=== PATIENT | male | born 1965 | race Caucasian/White ===

== ENCOUNTER 2021-08-28 07:05 | Inpatient (IN) | payer MEDICARE, OTHER ==
[~2021-08-28] VITALS: Ht 175.3 cm; Wt 69.8 kg
[2021-08-28 07:58] LABS: Source, Urine Voided
[2021-08-28 08:00] LABS: Appearance, Urine Clear (Clear); Bilirubin, Urine Neg (Neg); Blood, Urine 4+ (Neg); Color, Urine Yellow (P-Yellow); Glucose Qualitative, Urine 4+ (Neg); Ketones, Urine 1+ (Neg); Leukocyte Esterase, Urine Neg (Neg); Nitrite, Urine Neg (Neg); Protein, Urine Neg (Neg); Specific Gravity, Urine 1.005 (1.003-1.022); Urobilinogen, Urine NORM (Normal)
[2021-08-28 08:08] LABS: Bacteria Not Seen /hpf; Squamous Epithelial Cells Not Seen /hpf (Few); White Blood Cells, Urine 0-2 /hpf (0-5)
[2021-08-28 08:14] LABS: Base Excess Venous 3.4 mmol/L; PCO2 Venous 43.1 mmHg (38-42); pH Blood Venous 7.42 (7.34-7.37)
[2021-08-28 08:16] LABS: U Amphetamine Screen Not Detected; U Barbituate Screen Not Detected; U Benzodiazapine Screen Not Detected; U Buprenorphine Screen Not Detected; U Cannabinoids Screen Not Detected; U Cocaine Screen Not Detected; U Methadone Screen Not Detected; U Methamphetamine Screen Not Detected; U Opiates Screen Not Detected; U Oxycodone Screen DETECTED; U Phencyclidine Screen Not Detected; U Propoxyphene Screen Not Detected
[2021-08-28 08:26] LABS: Beta-hydroxybutyrate 9.1 mg/dL (0.2-2.8); Ethanol (Alcohol), Blood, Med <3 mg/dL; Magnesium, Blood 1.8 mg/dL (1.6-2.4)
[2021-08-28 08:27] LABS: Alanine Aminotransfer (ALT/SGP 27 U/L (12-78); Albumin, Blood 1.5 g/dL (3.4-5.0); Albumin/Globulin Ratio 0.3 (0.8-1.8); Alk Phos 101 U/L (50-136); Anion Gap 7 mmol/L (6-16); Aspartate Aminotrans (AST/SGOT 22 U/L (12-37); Bilirubin, Total 1.5 mg/dL (0.1-1.0); Blood Urea Nitrogen 13 mg/dL (8-24); Bun/Creatinine Ratio 23.5 (12.0-20.0); CO2, Blood 26 mmol/L (21-32); Calcium, Blood 8.5 mg/dL (8.5-10.1); Chloride, Blood 101 mmol/L (98-108); Creatinine, Blood 0.55 mg/dL (0.60-1.20); Glomerular Filtration Rate >60 (60-); Glucose, Blood 525 mg/dL (70-99); Potassium, Blood 4.1 mmol/L (3.5-5.5); Sodium, Blood 134 mmol/L (136-145); Total Protein, Blood 6.5 g/dL (6.4-8.2)
[2021-08-28 08:32] LABS: BASOPHILS ABSOLUTE AUTO 0.02 K/mm3 (0.00-0.23); BASOPHILS PERCENT AUTO 1 % (0-2); EOSINOPHILS ABSOLUTE AUTO 0.08 K/mm3 (0.00-0.68); EOSINOPHILS PERCENT AUTO 3 % (0-6); Hematocrit 26.9 % (37.0-53.0); Hemoglobin 8.3 g/dL (13.5-17.5); IMMATURE GRAN ABSOLUTE AUTO 0.01 K/mm3 (0.00-0.10); IMMATURE GRAN PERCENT AUTO 0 % (0-1); LYMPHOCYTES ABSOLUTE AUTO 0.36 K/mm3 (0.84-5.20); LYMPHOCYTES PERCENT AUTO 15 % (21-46); MONOCYTES ABSOLUTE AUTO 0.32 K/mm3 (0.16-1.47); MONOCYTES PERCENT AUTO 13 % (4-13); Mean Corpuscular HGB Conc 30.9 g/dL (31.5-36.5); Mean Corpuscular Volume 84 fL (80-100); NEUTROPHILS ABSOLUTE AUTO 1.65 K/mm3 (1.96-9.15); NEUTROPHILS PERCENT AUTO 68 % (41-73); RDW Coefficient Variation 16.3 % (11.7-14.2); RDW Standard Deviation 50.7 fL (35.1-46.3); Red Blood Cell Count 3.19 M/mm3 (4.30-5.90); White Blood Cell Count 2.44 K/mm3 (4.00-11.30)
[2021-08-28 08:45] LABS: Platelet Count 23 K/mm3 (150-400)
[2021-08-28 08:47] LABS: International Normalized Ratio 1.32; Prothrombin Time Results 13.6 Sec (9.7-11.5)
[2021-08-28 17:01] LABS: Influenza A, PCR NEGATIVE (NEGATIVE); Influenza B, PCR NEGATIVE (NEGATIVE); Resp Syncytial Virus, PCR NEGATIVE (NEGATIVE); SARS-Cov-2 (COVID-19) PCR, MMC NEGATIVE (NEGATIVE)
[2021-08-28 19:06] LABS: Hematocrit 28.1 % (37.0-53.0); Hemoglobin 8.6 g/dL (13.5-17.5)
--- NOTE | 2021-08-28 19:32 | NUR ---
RECEIVED REPORT FROM SHERYL DEL CID IN ED. PT TO ROOM AT 1845 VIA [facility], 1 PERSON ASSIST TRANSFER TO BED. VSS. REPORT GIVEN TO ONCOMING RN.
[2021-08-28] MEDS ORDERED: FURO40 PO (20:06)
[2021-08-28] MEDS ORDERED: METF500C PO (20:07)
[2021-08-28] MEDS ORDERED: LANTUS SOL100 UNIT/1 SC (20:09)
[2021-08-28] MEDS ORDERED: ADMELOG SO100 UNIT/2 SC (20:12)
[2021-08-28] MEDS ORDERED: OMEP20ER PO (20:13)
[2021-08-28] MEDS ORDERED: SPIR25 PO (20:14)
[2021-08-28] MEDS ORDERED: ROXICODONE5 MG PO (20:16)
[2021-08-29 01:47] LABS: Hematocrit 28.3 % (37.0-53.0); Hemoglobin 8.7 g/dL (13.5-17.5)
[2021-08-29 02:14] LABS: Alanine Aminotransfer (ALT/SGP 24 U/L (12-78); Albumin, Blood 1.7 g/dL (3.4-5.0); Albumin/Globulin Ratio 0.4 (0.8-1.8); Alk Phos 86 U/L (50-136); Anion Gap 6 mmol/L (6-16); Aspartate Aminotrans (AST/SGOT 33 U/L (12-37); Bilirubin, Total 1.4 mg/dL (0.1-1.0); Blood Urea Nitrogen 15 mg/dL (8-24); Bun/Creatinine Ratio 23.4 (12.0-20.0); CO2, Blood 26 mmol/L (21-32); Calcium, Blood 7.9 mg/dL (8.5-10.1); Chloride, Blood 108 mmol/L (98-108); Creatinine, Blood 0.64 mg/dL (0.60-1.20); Globulin, Blood 4.4 g/dL (2.2-4.0); Glomerular Filtration Rate >60 (60-); Glucose, Blood 306 mg/dL (70-99); Potassium, Blood 4.5 mmol/L (3.5-5.5); Sodium, Blood 140 mmol/L (136-145); Total Protein, Blood 6.1 g/dL (6.4-8.2)
--- NOTE | 2021-08-29 06:11 | NUR ---
SHIFT SUMMARY PATIENT FOUND TO BE ALERT AND ORIENTEDX1-2, WITH SEVERELY SLURRED/INCOMPREHENSIBLE SPEECH, GEN WEAKNESS, AND IN ACTIVE ALCOHOL WITHDRAW. CIWA Q4H WITH SCORES FROM 7-12. ATIVAN X1 GIVEN WHICH MADE PATIENT LETHARGIC FOR ABIT. VERY DROWSY AND FREQUENTLY DRIFTS OFF TO SLEEP MID CONVERSATION. NOT COMPLIANT WITH CARE AND RIPPING OUT IVS AND TELE EVERY CHANCE HE GETS. IS RESTLESS IN BETWEEN BOUTS OF LETHARGY. RESTRAINTS APPLIED AT END OF SHIFT PATIENT WAS TAKING AWAY FROM OTHER IMPORTANT PATIENT CARE. VSS. ON 2L NC SATING MID 90'S. PRODUCTIVE COUGH WITH SOME BLOODY SPUTUM NOTED. NSR ON THE MONITOR. BEDREST AND PATIENT IS UNSTEADY AND DOES NOT KNOW LIMITS. NOT FOLLOWING COMMANDS. NPO UNTIL SCOPE OR TRANSFER LATER TODAY. INCONTINENT OF URINE. NO BM THIS SHIFT. IV FLUIDS, PROTONIX, AND SANDOSTATIN RUNNING PER ORDER. FALL PRECAUTIONS IN PLACE. NO ACUTE CONCERNS AT THIS TIME. WILL CONTINUE PLAN OF CARE UNTIL REPORT GIVEN TO JORGE SAUCEDO.
[2021-08-29 09:15] LABS: Hematocrit 28.1 % (37.0-53.0); Hemoglobin 8.4 g/dL (13.5-17.5)
--- NOTE | 2021-08-29 10:49 | NUR ---
CONDOM CATH PLACED
[2021-08-29 13:51] LABS: BASOPHILS ABSOLUTE AUTO 0.01 K/mm3 (0.00-0.23); BASOPHILS PERCENT AUTO 1 % (0-2); EOSINOPHILS ABSOLUTE AUTO 0.09 K/mm3 (0.00-0.68); EOSINOPHILS PERCENT AUTO 4 % (0-6); Hematocrit 27.9 % (37.0-53.0); Hemoglobin 8.5 g/dL (13.5-17.5); IMMATURE GRAN ABSOLUTE AUTO 0.01 K/mm3 (0.00-0.10); IMMATURE GRAN PERCENT AUTO 1 % (0-1); LYMPHOCYTES ABSOLUTE AUTO 0.38 K/mm3 (0.84-5.20); LYMPHOCYTES PERCENT AUTO 18 % (21-46); MONOCYTES ABSOLUTE AUTO 0.25 K/mm3 (0.16-1.47); MONOCYTES PERCENT AUTO 12 % (4-13); Mean Corpuscular HGB 26.5 pg (26.0-34.0); Mean Corpuscular HGB Conc 30.5 g/dL (31.5-36.5); Mean Corpuscular Volume 87 fL (80-100); NEUTROPHILS ABSOLUTE AUTO 1.38 K/mm3 (1.96-9.15); NEUTROPHILS PERCENT AUTO 65 % (41-73); RDW Coefficient Variation 16.5 % (11.7-14.2); RDW Standard Deviation 51.8 fL (35.1-46.3); Red Blood Cell Count 3.21 M/mm3 (4.30-5.90); White Blood Cell Count 2.12 K/mm3 (4.00-11.30)
[2021-08-29 14:02] LABS: Platelet Count 22 K/mm3 (150-400)
[2021-08-29 15:01] LABS: U Amphetamine Screen Not Detected; U Barbituate Screen Not Detected; U Benzodiazapine Screen DETECTED; U Buprenorphine Screen Not Detected; U Cannabinoids Screen Not Detected; U Cocaine Screen Not Detected; U Methadone Screen Not Detected; U Methamphetamine Screen Not Detected; U Opiates Screen Not Detected; U Oxycodone Screen Not Detected; U Phencyclidine Screen Not Detected; U Propoxyphene Screen Not Detected
--- NOTE | 2021-08-29 18:00 | NUR ---
PT REMAINS CONFUSED, LESS AGITATED AND ANXIOUS THAN AT THE BEGINING OF THE SHIFT. PT IS SLEEPY, HE WAKES TO VERBAL OR PAINFUL STIMULI, PT WAKES ATTEMPTS TO ADJUST BED THEN WILL RETURN TO SLEEP. SPEECH REMAINS GARBLES ONE TO TWO WORD SENTENCES. VSS. CONDOM CATH PLACED WHICH IS DRAINING WELL TO GRAVITY. PT REMAINS WITH NASAL CANNULA IN PLACE, CURRENTLY IS IN HIS MOUTH HE DOES NOT TOLERATE IT WELL IN HIS NARES.
[2021-08-29 19:15] LABS: Hematocrit 28.6 % (37.0-53.0); Hemoglobin 8.6 g/dL (13.5-17.5)
[2021-08-30 02:39] LABS: Hematocrit 30.4 % (37.0-53.0); Hemoglobin 9.1 g/dL (13.5-17.5); Mean Corpuscular HGB 26.1 pg (26.0-34.0); Mean Corpuscular HGB Conc 29.9 g/dL (31.5-36.5); Mean Corpuscular Volume 87 fL (80-100); RDW Coefficient Variation 16.4 % (11.7-14.2); RDW Standard Deviation 52.9 fL (35.1-46.3); Red Blood Cell Count 3.48 M/mm3 (4.30-5.90); White Blood Cell Count 2.63 K/mm3 (4.00-11.30)
[2021-08-30 02:53] LABS: Platelet Count 23 K/mm3 (150-400)
--- NOTE | 2021-08-30 06:03 | NUR ---
SHIFT SUMMARY PATIENT IS A CONFUSED MAN ORIENTED TO SELF ONLY WITH CIWA FROM 6-12 ALL SHIFT AND PRN ATIVAN GIVENX1. SLURRED/INCOMPREHENSIBLE SPEECH AND NOT FOLLOWING COMMANDS FOR THE MOST PART. WHEN ALERT, IS CURSING AND PULLING AT BUE RESTRAINTS. KEEPING THESE ON TO MAINTAIN LINES. IV PROTONIX AND SANDOSTATIN RUNNING PER ORDER. VSS. NSR IN THE 80'S ON TELE. HTN AT TIMES. ON 2L NC SATING LOW 90'S. PRODUCTIVE COUGH AT TIMES. Q2H ORAL CARE HE REMAINS NPO. CONDOM CATH IN PLACE WITH MORE THAN ADEQUATE KAITLYNN OUTPUT. NO SIGNS OF BLEEDING THROUGHOUT SHIFT. WILL CONTINUE PLAN OF CARE UNTIL REPORT GIVEN TO AMI SAUCEDO.
[2021-08-30 14:39] LABS: Source, Urine Catheter
[2021-08-30 14:55] LABS: Appearance, Urine Clear (Clear); Bilirubin, Urine Neg (Neg); Blood, Urine 5+ (Neg); Color, Urine Yellow (P-Yellow); Glucose Qualitative, Urine 4+ (Neg); Ketones, Urine 2+ (Neg); Leukocyte Esterase, Urine Neg (Neg); Nitrite, Urine Neg (Neg); Protein, Urine 2+ (Neg); Specific Gravity, Urine 1.015 (1.003-1.022); Urobilinogen, Urine NORM (Normal)
[2021-08-30 15:16] LABS: White Blood Cells, Urine 0-2 /hpf (0-5)
[2021-08-30 15:17] LABS: Bacteria Few /hpf; Squamous Epithelial Cells Not Seen /hpf (Few)
--- NOTE | 2021-08-30 18:31 | NUR ---
PT REMAINS SLEEPING T/O MUCH OF THE DAY, PT WITH CIWA THAT HAS RANGED FROM 7-11. PT WAKES TO VERBAL AND PAINFUL STIMULI, PT WAKES AGITATED EACH TIME. ATIVAN WAS ADMINISTERED NEEDED FOR CIWA. PT REMOVED CONDOM CATH, A PAREKH CATH WAS THEN PLACED WHICH IS DRAINING WELL TO GRAVITY. THIS SHIFT THERE WAS NOT AN AVAILABLE BED AT [facility]. NO ACTIVE BLEEDING, NO BM, NO VOMITTING. B/T HYPOACTIVE T/O. PROTONIX DRIP CONTINUES, THE OCTREOTIDE DRIP HAS BEEN D/C
--- NOTE | 2021-08-30 20:50 | NUR ---
THIS LN TOOK OVER CARE AT 1915 PATIENT IS SOMNOLENT OPENS EYES TO VOICE, UNSUSTAINING EYE WAKING > 10 SECS, TRACKS YOU IN ROOM, JAUNDICE SCERLA AND SKIN, GCS 11, SOFT WRIST RESTRAINTS IN PLACE PULLING AT TUBING, COARSE LUNG SOUNDS WITH 40 RR, 98 % SATURATIONS ON 2L NC MOUTH BREATHING WITH ACCESSORY MUSCLE USE, BOWEL TONES ARE HYPOACTIVE> 1 MIN AUSCULATION X 4, WITH HOLLOW SOUNDS, DISTENSION NONTENDER ON PALPITATION, WILL CONTINUE TO MONITOR AND PROVIDE REORIENATION.
[2021-08-31 04:27] LABS: Hematocrit 33.3 % (37.0-53.0); Hemoglobin 10.1 g/dL (13.5-17.5); Mean Corpuscular HGB 25.8 pg (26.0-34.0); Mean Corpuscular HGB Conc 30.3 g/dL (31.5-36.5); Mean Corpuscular Volume 85 fL (80-100); RDW Coefficient Variation 16.3 % (11.7-14.2); RDW Standard Deviation 51.5 fL (35.1-46.3); Red Blood Cell Count 3.92 M/mm3 (4.30-5.90); White Blood Cell Count 4.44 K/mm3 (4.00-11.30)
[2021-08-31 04:34] LABS: Platelet Count 32 K/mm3 (150-400)
--- NOTE | 2021-08-31 05:05 | NUR ---
PATIENT AROUND 0406 EXHIBITED SIGNS OF PAIN, MOANING GROANING WHEN ASKED IF HE HAD PAIN WAS ABLE TO SHAKE HIS HEAD YES OR NO, HE SAID YES TO CHEST PAIN, VISIBLE DISCOMFORT, BLOOD PRESSURE 191/[address] FROM NORMAL SINUS RHYTHM 110-120, NEW ORDERS EKG AND TROPONIN, LABETOLOL 10MG Q4 PRN SBP > 160, HYDRAYLZINE 10MG IVP GIVEN X 3 WITH NO GOOD RESOLUTION. BLOOD PRESSURE SBP < 160 AFTER LABETOLOL. CRITICAL LAB OF PLTS 32 INCREASE FROM 23 PLT, CHARGE NURSE WAS MADE AWARE. ORAL CARE WAS GIVEN Q4 VIA SUCTIONING, NOTED RED BEEFY TONGUE, CIWA(S) RANGING FROM 8-18 THIS EVENING, PAREKH CATHETER IS PATENT DRAINING BELOW THE BLADDER CLEAR ORANGE, SKIN INTACT, PATIENT HAD A SOLID FORM BROWN STOOL THIS EVENING. WILL CONTINUE TO MONITOR UNTIL SHIFT CHANGE.
[2021-08-31 05:13] LABS: Anion Gap 11 mmol/L (6-16); Blood Urea Nitrogen 11 mg/dL (8-24); Bun/Creatinine Ratio 23.5 (12.0-20.0); CO2, Blood 23 mmol/L (21-32); Calcium, Blood 8.5 mg/dL (8.5-10.1); Chloride, Blood 111 mmol/L (98-108); Creatinine, Blood 0.47 mg/dL (0.60-1.20); Glomerular Filtration Rate >60 (60-); Glucose, Blood 256 mg/dL (70-99); Potassium, Blood 3.8 mmol/L (3.5-5.5); Sodium, Blood 145 mmol/L (136-145)
--- NOTE | 2021-08-31 10:08 | NUR ---
CARE ASSUMPTION THIS RN ASSUMED FROM MARIA ELENA SAUCEDO AT 0700. PATIENT IS ABLE TO AWAKE WITH A STERNUM RUB AND KEEPS EYES OPEN FOR ABOUT 5-10 SECONDS AND THEN FALLS BACK ASLEEP. PATIENT IS ABLE TO GROAN AND MOAN, BUT UNABLE TO COMMUNICATE NEEDS. PATIENT IS IN BILATERAL SOFT WRIST RESTRAINTS TO PROTECT LINES. PATIENT HAS INCREASED BLOOD PRESSURE SBP >160, MD AWARE AND WILL GIVE THE ADDITIONAL DOSE OF HYDRALZINE AT 1030. PATIENT SKIN IS CLEAN AND INTACT. PAREKH CATH IS IN PLACE DRAINING WITH GRAVITY. SPO2 >90% ON RA. CALL LIGHT WITHIN REACH AND WILL CONTINEU TO MONITOR AND PROVIDE CARE.
--- NOTE | 2021-08-31 18:46 | NUR ---
SHIFT SUMMARY PATIENT HAS BEEN SLEEPING MOST OF THE DAY. PATIENT IS ABLE TO RESPOND TO A STERNUM RUB AND OPENS EYES FOR ABOUT 10 SECONDS. PATIENT PAIN HAS BEEN FROM A 6-4 USING THE FLACC SCALE, PATIENT RECEIVED IV PAIN MEDICATION. PATIENT CIWA HAS BEEN LESS THAN 8. RESTRAINTS IN PLACE. PAREKH CATH IN PLACE DRAINING WITH GRAVITY. NO ACUTE CHANGES DURING THIS SHIFT. SPOKE TO ADDRESSING MACHINE OPERATOR ABOUT PATIENT NOT EATING AND SHE SAID SHE WOULD CONTACT MD MURPHY. CALL LIGHT WITHIN REACH AND BED IN LOWEST POSTION WILL CONTINUE TO MONITOR AND PROVIDE CARE UNTIL HAND OFF WITH NEXT SHIFT.
--- NOTE | 2021-08-31 20:50 | NUR ---
PATIENT IS ALERT TO SELF, CIWA 12, HTN PRN LABETOLOL GIVEN WITH SHORT RELIEF, LUNGS ARE COARSE, RHONCHI WITH FINE CRACKLES AT BASES, NEW ORDERS TO HOLD LR 75ML/HR GET A PORTABLE CHEST XRAY 1 VIEW. SOFT WRIST RESTRAINTS IN PLACE, POLST OXIMETRY PROBE REPLACED SATURATIONS 94% RR 34-40 MOUTHE BREATHING USE OF ACCESSORY MUSCLES ON RA.
--- NOTE | 2021-09-01 02:29 | NUR ---
PATIENT HAS NOT BEEN PULLING AT LINES AT 0200 DC'D RESTRAINTS, BLOOD PRESSURE REMAINS ELEVATED SBP>160 PRN GIVEN PER ORDER AND PAIN MEDICATION. CIWA(S) 4-18 BUT CAN BE DIFFICULT WITH NONVERBAL GARBLED SPEECH AND PAIN FACTOR. CHEST XRAY WAS OBTAINED AND WAITING ON RESULTS. AUDITORY GURGLING, DIFFICULTY CLEARING SECRETIONS, ORAL CARE PROVIDED WITH SUCTIONING, HEAD OF BED > 30, PRECAUTIONS FROM VARIACES ON SUCTIONING MAINTAINED, LUNG DOWELL, COARSE, RALES, AND RHONCHI, COGESTED WEAK COUGH, SATURATIONS REMAINING > 94% ON RA, NSR 80-90'S WITH PAIN CONTROL.
--- NOTE | 2021-09-01 08:25 | NUR ---
CARE ASSUMPTION THIS RN ASSUMED CARE AT 0700 FROM MARIA ELENA SAUCEDO. PATIENT IS ABLE TO OPEN EYES FOR ABOUT 10 SECONDS AFTER A STERNUM RUB, AND GROANS/MOANS AND THEN FALLS BACK ASLEEP. MD MURPHY IN TO SEE PATIENT THIS MORNING. PLAN IS TO GIVE LASIX, A CLONIDINE PATCH, PARENTERAL NUTRITION, AND CHANGE OF INNSULIN. FOELY CATH IN PLACE DRAINING WITH GRAVITY AN KAITLYNN COLOR. PATIENT IS BEING REPOSITIONED EVERY 2 HOURS TO PREVENT SKIN BREAKDOWN, AND ORAL CARE EVERY 4 HOURS. LUNG SOUNDS CRACKLES, CONGESTED. PATIENT USES ACCESSORY MUSCLES AND RESPIRATION RATE THIS MONRING IS 24. VSS. GAVE PATIENT PRN HYDRALZINE THIS AM DUE TO SBP >160. CALL LIGHT WITHIN REACH. WILL CONTINUE TO MONITOR AND PROVIDE CARE.
[2021-09-01 08:52] LABS: Hematocrit 35.4 % (37.0-53.0); Hemoglobin 10.5 g/dL (13.5-17.5); Mean Corpuscular HGB 25.4 pg (26.0-34.0); Mean Corpuscular HGB Conc 29.7 g/dL (31.5-36.5); Mean Corpuscular Volume 86 fL (80-100); RDW Coefficient Variation 17.3 % (11.7-14.2); RDW Standard Deviation 53.9 fL (35.1-46.3); Red Blood Cell Count 4.13 M/mm3 (4.30-5.90); White Blood Cell Count 6.17 K/mm3 (4.00-11.30)
[2021-09-01 09:12] LABS: Platelet Count 31 K/mm3 (150-400)
[2021-09-01 09:16] LABS: Alanine Aminotransfer (ALT/SGP 22 U/L (12-78); Albumin, Blood 1.7 g/dL (3.4-5.0); Albumin/Globulin Ratio 0.4 (0.8-1.8); Alk Phos 88 U/L (50-136); Anion Gap 6 mmol/L (6-16); Aspartate Aminotrans (AST/SGOT 32 U/L (12-37); Bilirubin, Total 2.2 mg/dL (0.1-1.0); Blood Urea Nitrogen 15 mg/dL (8-24); Bun/Creatinine Ratio 26.1 (12.0-20.0); CO2, Blood 24 mmol/L (21-32); Calcium, Blood 8.3 mg/dL (8.5-10.1); Chloride, Blood 117 mmol/L (98-108); Creatinine, Blood 0.57 mg/dL (0.60-1.20); Globulin, Blood 4.8 g/dL (2.2-4.0); Glomerular Filtration Rate >60 (60-); Glucose, Blood 305 mg/dL (70-99); Sodium, Blood 147 mmol/L (136-145); Total Protein, Blood 6.5 g/dL (6.4-8.2)
--- NOTE | 2021-09-01 17:55 | NUR ---
SHIFT SUMMARY PATIENT IS ALERT TO SELF. PATIENT HAS BEEN ABLE TO MUMBLE A FEW WORDS THROUGHOUT THE SHIFT. PATIENT EARLIER STATED HE COULDN'T BREATH, AND WAS TRYING TO COUGH UP SECRETIONS. SUCTION WAS DOWN AND THICK COOK SECRETIONS CAME UP. THE SUCTION WAS GENTLE AND APPROPRIATE FOR THE PATIENTS VARICES. PATIENT WAS UNABLE TO CLEAR SECRETIONS ON HIS OWN. PATIENT THEN STATED ABOUT 5 HOURS LATER HE WAS NOT COMFORTABLE AND REPOSITIONED. PATIENT WAS ABLE TO COMMUNICATE WITH HIS LAST CIWA, WHICH WAS A 6. HAD A SLIGHT HEADACHE AND SLIGHT NAUSE. NO NEW CHANGES THIS SHIFT. PLAN IS TO CONTINUE CLINIMEX AND MULTIVITAMINS. VSS. BED IN LOWEST POSITION. CALL LIGHT WITHIN REACH. PAREKH CATH IN PLACE DRAINING. WILL CONTINUE TO MONITOR AND PROVIDE CARE UNTIL HAND OFF
[2021-09-02 03:50] LABS: Hematocrit 32.2 % (37.0-53.0); Hemoglobin 9.3 g/dL (13.5-17.5)
[2021-09-02 04:13] LABS: Alanine Aminotransfer (ALT/SGP 19 U/L (12-78); Albumin, Blood 1.6 g/dL (3.4-5.0); Albumin/Globulin Ratio 0.3 (0.8-1.8); Alk Phos 80 U/L (50-136); Anion Gap 3 mmol/L (6-16); Aspartate Aminotrans (AST/SGOT 31 U/L (12-37); Bilirubin, Total 1.9 mg/dL (0.1-1.0); Blood Urea Nitrogen 18 mg/dL (8-24); Bun/Creatinine Ratio 35.6 (12.0-20.0); CO2, Blood 24 mmol/L (21-32); Calcium, Blood 8.6 mg/dL (8.5-10.1); Chloride, Blood 122 mmol/L (98-108); Creatinine, Blood 0.51 mg/dL (0.60-1.20); Globulin, Blood 4.6 g/dL (2.2-4.0); Glomerular Filtration Rate >60 (60-); Glucose, Blood 353 mg/dL (70-99); Magnesium, Blood 2.1 mg/dL (1.6-2.4); Phosphorus, Blood 3.2 mg/dL (2.5-4.9); Potassium, Blood 3.7 mmol/L (3.5-5.5); Sodium, Blood 149 mmol/L (136-145); Total Protein, Blood 6.2 g/dL (6.4-8.2)
--- NOTE | 2021-09-02 06:31 | NUR ---
CALL PLACED TO HOSPITALIST EARLIER IN AM PT REMAINS HYPERTENSIVE DESPITE PRN DOSE OF HYDRALAZINE. ORDERS REC, GIVEN PRN DOSE OF LABETELOL, SEE MAR AND VS FLOW SHEET. WILL CONTINUE TO MONITOR. SHERYL GORDON
--- NOTE | 2021-09-02 10:06 | NUR ---
MENTATION PATIENT WAS MORE ALERT WHEN THIS RN WENT IN TO DO ROUNDING. THIS RN INFORMED THE PATIENT TO WHERE HE IS, AT [facility] IN [place], [place]. THE PATIENT BEGAN TO CRY. THIS RN PROVIDED THERAPEUTIC SILENCE AND HELD THE PATIENTS HAND. THE PATIENT TRIED TO COMMUNICATE MORE, BUT SPEECH IS VERY DIFFICULT TO UNDERSTAND. THIS RN DID UNDERSTAND THE PATIENTS MONTH AND DAY OF HIS BIRTHDAY, BUT COULDN'T UNDERSTAND THE YEAR. THIS RN WAS ABLE TO DO A MORE ACCURATE CIWA WITH THE PATIENTS MENTATION IMPROVING. THIS RN PROVIDED ORAL CARE. WILL CONTINUE TO MONITOR AND PROVIDE CARE.
--- NOTE | 2021-09-02 17:29 | NUR ---
SHIFT SUMMARY PATIENT VSS. SPO2 >90% ON RA. PATIENT IS STILL LETHARGIC AND HAS EPISODES OF INTERMITTENCE OF BEING MORE ALERT AND ORIENTATED X2, AND THEN BECOMING CONFUSED AGAIN. WHEN PATIENT AWAKES HE IS MORE CONFUSED. PATIENT IS ABLE TO FOLLOW COMMANDS AND TRYS TO COMMUNICATE BUT SPEECH IS GARBLED AND DIFFICULT TO UNDERSTAND. THIS RN TALKED WITH MD MURPHY ABOUT PATIENT MENTATION STATUS TO WHAT IS CAUSING IT. PATIENT HAD A HEAD CT, WHICH DIDN'T SHOW ANYTHING SIGNIFICANT. M.V.I INFUSING AT 50MLS/HR. PAREKH CATH IN PLACE DRAINING WITH GRAVITY. SOFT WRIST RESTRAINTS IN PLACE DUE TO WHEN PATIENT AWAKENS HE BEGINS TO PULL AT LINES, AND REMINDERS AND HIDING LINES WASN'T WORKING. PATIENT REPOSITIONED EVERY 2 HOURS. ORAL CARE DONE THROUGHOUT SHIFT, AND THIS RN WAS ABLE TO REMOVE MORE PLAQUE BUILD UP FROM THE ROOF OF HIS MOUTH. SKIN COLOR IS NO LONGER HAS A JUANDICE COLORATION. CALL LIGHT WITHIN REACH AND BED IN LOWEST POSITION. WILL CONTINUE TO MONITOR AND PROVIDE CARE UNTIL HAND OFF WITH NEXT SHIFT.
[2021-09-03 03:55] LABS: Hematocrit 34.2 % (37.0-53.0); Mean Corpuscular HGB 25.6 pg (26.0-34.0); Mean Corpuscular HGB Conc 29.2 g/dL (31.5-36.5); Mean Corpuscular Volume 88 fL (80-100); RDW Coefficient Variation 17.5 % (11.7-14.2); RDW Standard Deviation 56.4 fL (35.1-46.3); White Blood Cell Count 5.26 K/mm3 (4.00-11.30)
[2021-09-03 04:19] LABS: Platelet Count 33 K/mm3 (150-400)
[2021-09-03 04:26] LABS: Alanine Aminotransfer (ALT/SGP 23 U/L (12-78); Albumin, Blood 1.6 g/dL (3.4-5.0); Albumin/Globulin Ratio 0.4 (0.8-1.8); Alk Phos 88 U/L (50-136); Anion Gap 3 mmol/L (6-16); Aspartate Aminotrans (AST/SGOT 37 U/L (12-37); Bilirubin, Total 1.7 mg/dL (0.1-1.0); Blood Urea Nitrogen 19 mg/dL (8-24); Bun/Creatinine Ratio 32.3 (12.0-20.0); CO2, Blood 22 mmol/L (21-32); Calcium, Blood 8.2 mg/dL (8.5-10.1); Chloride, Blood 128 mmol/L (98-108); Creatinine, Blood 0.59 mg/dL (0.60-1.20); Globulin, Blood 4.5 g/dL (2.2-4.0); Glomerular Filtration Rate >60 (60-); Glucose, Blood 187 mg/dL (70-99); Phosphorus, Blood 3.8 mg/dL (2.5-4.9); Potassium, Blood 4.3 mmol/L (3.5-5.5); Sodium, Blood 153 mmol/L (136-145); Total Protein, Blood 6.1 g/dL (6.4-8.2)
--- NOTE | 2021-09-03 05:32 | NUR ---
SHIFT SUMMARY NO ACUTE CHANGES THIS SHIFT. PT VERY LETHARGIC, OPENS EYES TO VERBAL STIMULI, NOT ORIENTED. SP02>90% ON RA. TELEMETRY READS SINUS TACH, HR 100'S. FLUIDS INFUSED PER EMAR. PAREKH CATHETER DRAINING DARK ORANGE/YELLOW URINE TO GRAVITY. NO BM THIS SHIFT. PT FEBRILE, GIVEN MS TYLENOL. Q2H REPOSITIONIN. CALL LIGHT IN REACH.
--- NOTE | 2021-09-03 11:48 | NUR ---
UPDATE PHYSICIAN AT BEDSIDE THIS AM. PLAN FOR PT TO HAVE LACTULOSE [facility] AT SCHEDULED TIMES. THIS RN, DONNELL RN AND SPINDRAW OPERATOR IN ROOM TO ATTEMPT LACTULOSE ENEMA. PT UNABLE TO TOLERATE FULL AMOUNT. PT HAD LARGE BM DURING ENEMA. PT PUSHED OUT ENEMA TWICE DURING PROCEDURE. DIETARY INFORMED THAT PHYSICIAN PLACED CONSULT FOR TPN WITH LOW NA+ D/T PT'S HIGH NA+ LEVEL. PT FEBRILE, MEDICATED SEE EMAR. DIETARY CONSULT CALLED BY THIS RN.
[2021-09-03 14:00] LABS: PCO2 Arterial 26.2 mmHg (35-45); PO2 Arterial 78.4 mmHg (80-100)
--- NOTE | 2021-09-03 17:43 | NUR ---
SHIFT SUMMARY PT ALERT TO SELF. UNAWARE OF LOCATION STATES IS "NOT IN THE [place], AND IN THE [place]ONG [place]." PT NOT DIRECTABLE. SECOND LACTULOSE ENEMA GIVEN AND PT HAD LARGE BM DURING PROCEDURE. PT VERY AGGITATED AT END OF SHIFT. PULLING AT LINES. ATTEMPING TO HIT STAFF WITH CALL LIGHT. PT MEDICATED WITH ATIVAN. HR STABLE. OXYGEN SATURATION MAINTAINED ABOVE 92% ON RA. HYPERTENSIVE AT TIMES. MEDICATED SEE EMAR. SOFT WRIST RESTRAINTS IN PLACE. PT PULLING AT LINES WHEN RESTRAINTS NOT ON. NO CP OR PRESSURE REPORTED. BED BATH GIVEN. DEPENDS IN PLACE. PAREKH PATENT AND DRAINING TO GRAVITY. WILL CONT TO MONITOR UNTIL REPORT GIVEN TO NIGHTSHIFT RN.
--- NOTE | 2021-09-03 19:31 | NUR ---
UPDATE PHYSICIAN NOTIFIED OF PT ATTEMPTING TO CLIMB OUT OF BED. AGGITATED. NOT DIRECTABLE. PULLING AT PAREKH. ORDERS FOR BUE AND BLE SOFT RESTRAINTS.
[2021-09-04 04:10] LABS: Hematocrit 32.8 % (37.0-53.0); Hemoglobin 9.2 g/dL (13.5-17.5); Mean Corpuscular HGB 25.1 pg (26.0-34.0); Mean Corpuscular Volume 90 fL (80-100); RDW Coefficient Variation 17.1 % (11.7-14.2); RDW Standard Deviation 55.9 fL (35.1-46.3); Red Blood Cell Count 3.66 M/mm3 (4.30-5.90); White Blood Cell Count 2.09 K/mm3 (4.00-11.30)
[2021-09-04 04:39] LABS: Platelet Count 18 K/mm3 (150-400)
[2021-09-04 04:49] LABS: Alanine Aminotransfer (ALT/SGP 24 U/L (12-78); Albumin, Blood 1.5 g/dL (3.4-5.0); Albumin/Globulin Ratio 0.3 (0.8-1.8); Alk Phos 82 U/L (50-136); Anion Gap 4 mmol/L (6-16); Aspartate Aminotrans (AST/SGOT 33 U/L (12-37); Bilirubin, Total 1.7 mg/dL (0.1-1.0); Blood Urea Nitrogen 17 mg/dL (8-24); Bun/Creatinine Ratio 34.4 (12.0-20.0); CO2, Blood 22 mmol/L (21-32); Calcium, Blood 7.9 mg/dL (8.5-10.1); Chloride, Blood 125 mmol/L (98-108); Creatinine, Blood 0.49 mg/dL (0.60-1.20); Globulin, Blood 4.3 g/dL (2.2-4.0); Glomerular Filtration Rate >60 (60-); Glucose, Blood 300 mg/dL (70-99); Magnesium, Blood 1.9 mg/dL (1.6-2.4); Phosphorus, Blood 2.7 mg/dL (2.5-4.9); Potassium, Blood 4.2 mmol/L (3.5-5.5); Sodium, Blood 151 mmol/L (136-145); Total Protein, Blood 5.8 g/dL (6.4-8.2); Triglycerides 66 mg/dL (30-160)
[2021-09-04 15:46] LABS: Percent Saturation 27.3 % (20.0-50.0)
--- NOTE | 2021-09-04 18:16 | NUR ---
SHIFT SUMMARY PT ALERT TO SELF. CONFUSED ON LOCATION. REASON FOR ADMITANCE TO HOSPTIAL. BELIEVES HE IS "ON PLUTO." EEG DONE. CAN REFORMING MACHINE OPERATOR INFORMED THIS RN THAT RESULTS WILL NOT BE READ FOR 1-2 DAYS, NEUROLOGIST IS OUT OF TOWN. PHYSICIAN INFORMED ON NEW CHEST X RAY RESULTS. D5 RUNNING AT THIS TIME. PT PROVIDED WITH FREQUENT ORAL CARE Q 2-4 HRS. WHILE WORKING WITH OT PT HAD LARGE CAST COUGHED UP. EASEMENT WORKER AWARE. PT IN BUE AND RLE SOFT RESTRAINTS. SEE CIWA SCORES. PT DIFFICULT TO UNDERSTAND, SPEECH IS GARBLED AND INCOMPREHENSIBLE. SPOKE WITH SHERYL JUNIOR REGARDING PT'S LIVING SITUAITON. PT'S WALLET FOUND IN ROOM, AT BEDSIDE. PT'S ID STICKER IN PLACE ON PT'S WALLET. PT ABLE TO TURN IN BED. HR STABLE. BP STABLE. OXYGEN SATURAITON MAINTAINED ABOVE 92% ON RA. NO CP OR PRESSURE REPORTED. WILL CONT TO MONITOR UNTIL REPORT GIVEN TO NIGHTSHIFT RN.
--- NOTE | 2021-09-05 02:32 | NUR ---
PT UPDATE PT AGITATED. STATES HE IS LOCKED IN A CAGE FOR 10 DAYS AND NEEDS TO GET OUT TO GO TO THE HOSPITAL. PT HAS BROKE OUT OF L WRIST RESTRAINT X2 THIS SHIFT. PULLING AT LINES, CORDS, RESTRAINTS. CALL PLACED TO MD NGUYEN. MD NGUYEN W/ ORDERS FOR ATIVAN, SEE EMAR. AFTER ATIVAN GIVEN, PT CONTINUED TO GET OUT OF RESTRAINT. PT CHANGED TO TUFF CUFFS TO PROTECT LINES AND CORDS.
[2021-09-05 04:36] LABS: BASOPHILS ABSOLUTE AUTO 0.04 K/mm3 (0.00-0.23); BASOPHILS PERCENT AUTO 1 % (0-2); EOSINOPHILS ABSOLUTE AUTO 0.14 K/mm3 (0.00-0.68); EOSINOPHILS PERCENT AUTO 5 % (0-6); Hematocrit 34.6 % (37.0-53.0); Hemoglobin 10.1 g/dL (13.5-17.5); IMMATURE GRAN ABSOLUTE AUTO 0.01 K/mm3 (0.00-0.10); IMMATURE GRAN PERCENT AUTO 0 % (0-1); LYMPHOCYTES ABSOLUTE AUTO 0.61 K/mm3 (0.84-5.20); LYMPHOCYTES PERCENT AUTO 22 % (21-46); MONOCYTES ABSOLUTE AUTO 0.18 K/mm3 (0.16-1.47); MONOCYTES PERCENT AUTO 7 % (4-13); Mean Corpuscular HGB 25.7 pg (26.0-34.0); Mean Corpuscular HGB Conc 29.2 g/dL (31.5-36.5); Mean Corpuscular Volume 88 fL (80-100); NEUTROPHILS PERCENT AUTO 65 % (41-73); RDW Coefficient Variation 16.5 % (11.7-14.2); RDW Standard Deviation 54.1 fL (35.1-46.3); Red Blood Cell Count 3.93 M/mm3 (4.30-5.90); White Blood Cell Count 2.78 K/mm3 (4.00-11.30)
[2021-09-05 05:41] LABS: Platelet Count 22 K/mm3 (150-400)
--- NOTE | 2021-09-05 05:52 | NUR ---
SHIFT SUMMARY PT ORIENTED TO SELF. SP02>90% ON RA. NO TELEMETRY, VSS. PAREKH CATHETER DRAINING DARK YELLOW URINE TO GRAVITY. SMALL SMEAR BM THIS SHIFT. C/D ATTENDS IN PLACE. PT AGITATED THIS SHIFT, SEE PREVIOUS NOTE. NO TREMORS/NAUSEA NOTED, CIWA 6-8. PT CURRENTLY IN ROOM, QUIET BUT PULLING AT RESTRAINTS, RESTELESS IN BED. DID NOT SLEEP DURING NIGHT. ABX INFUSED PER EMAR. CALL LIGHT IN REACH.
[2021-09-05 05:53] LABS: Alanine Aminotransfer (ALT/SGP 26 U/L (12-78); Albumin, Blood 1.7 g/dL (3.4-5.0); Albumin/Globulin Ratio 0.4 (0.8-1.8); Alk Phos 89 U/L (50-136); Anion Gap 3 mmol/L (6-16); Aspartate Aminotrans (AST/SGOT 47 U/L (12-37); Bilirubin, Total 1.8 mg/dL (0.1-1.0); Blood Urea Nitrogen 13 mg/dL (8-24); Bun/Creatinine Ratio 24.2 (12.0-20.0); CO2, Blood 24 mmol/L (21-32); Calcium, Blood 7.8 mg/dL (8.5-10.1); Chloride, Blood 122 mmol/L (98-108); Creatinine, Blood 0.54 mg/dL (0.60-1.20); Globulin, Blood 4.5 g/dL (2.2-4.0); Glomerular Filtration Rate >60 (60-); Glucose, Blood 83 mg/dL (70-99); Potassium, Blood 3.2 mmol/L (3.5-5.5); Sodium, Blood 149 mmol/L (136-145); Total Protein, Blood 6.2 g/dL (6.4-8.2)
--- NOTE | 2021-09-05 10:43 | NUR ---
PATIENT ALERT TO SELF, ABLE TO TELL ME HIS BIRTHDAY THIS AM. DOES NOT UNDERSTAND WHERE HE IS OR WHAT IS GOING ON. STATES "I NEED TO GET TO HOSPITAL". VOICE GARBELED AND AT TIMES HARD TO UNDERSTAND. PERRLA. ABLE TO MOVE ALL EXTREMITIES. Q2 TURNING AND NEEDED. UPPER EXTREMITY RESTRAINTS AND LOWER RIGHT LEG RESTRAINT IN PLACE DUE TO PATIENT PULLING AT LINES/TUBING AND TRYING TO GET OUT OF BED. ON ROOM AIR SATING ABOVE 94%. NO TELE AT THIS TIME. BP STABLE. DENIES CHEST PAIN/PRESSURE. DENIES ABDOMINAL PAIN/NAUSEA. SKIN OVERALL COOK/YELLOW IN COLOR WITH SCATTERED BRUISING. FREQUENT ORAL CARE PATIENT IS A MOUTH BREATHER. CIWA SCORES 7 THIS AM. ATIVAN GIVEN THIS AM PER EMAR FOR SEVERE AGITATION. POTASSIUM AND D5W INFUSING. D5W TO STOP INFUSING ONCE TPN IS STARTED LATER TODAY. PATIENT SLEEPING AT THIS TIME. WILL CONTINUE TO MONITOR. CALL LIGHT IN REACH.
--- NOTE | 2021-09-05 17:07 | NUR ---
UPDATE: SPOKE WITH DR. HDEZ REGARDING LASTEST LAB RESULTS. NEW ORDERS FOR D5W AT 50ML/HR. STOPPING NORMAL SALINE. RECHECKING SODIUM IN 2 HOURS. WILL CONTINUE TO UPDATE DR. HDEZ WITH LAB RESULTS.
--- NOTE | 2021-09-05 17:44 | NUR ---
SHIFT SUMMARY: NO ACUTE CHANGES. MEDICATED X2 WITH ATIVAN THIS SHIFT. RESTRAINTS REMAIN IN PLACE, GIVING PATIENT BREAKS AND RANGE OF MOTION. NO CHANGES IN TELE. BP STABLE. REMAINS ON ROOM AIR. AGGITATED AT TIMES YELLING OUT. D5W STOPPED ONCE PPN STARTED. PPN RUNNING AT INTIAL 50ML/HR X1 HOUR AT THIS TIME. ANTIBOITICS INFUSING WELL. FREQUENT ORAL CARE WITH A2 TURNING AND NEEDED. VITAL SIGNS REMAIN STABLE. WILL CONTINUE TO MONITOR AND REPORT OFF TO ONCOMING RN.
[2021-09-06 05:50] LABS: BASOPHILS ABSOLUTE AUTO 0.03 K/mm3 (0.00-0.23); BASOPHILS PERCENT AUTO 1 % (0-2); EOSINOPHILS ABSOLUTE AUTO 0.11 K/mm3 (0.00-0.68); EOSINOPHILS PERCENT AUTO 4 % (0-6); Hematocrit 32.6 % (37.0-53.0); Hemoglobin 9.5 g/dL (13.5-17.5); IMMATURE GRAN ABSOLUTE AUTO 0.01 K/mm3 (0.00-0.10); IMMATURE GRAN PERCENT AUTO 0 % (0-1); LYMPHOCYTES ABSOLUTE AUTO 0.58 K/mm3 (0.84-5.20); LYMPHOCYTES PERCENT AUTO 21 % (21-46); MONOCYTES ABSOLUTE AUTO 0.25 K/mm3 (0.16-1.47); MONOCYTES PERCENT AUTO 9 % (4-13); Mean Corpuscular HGB Conc 29.1 g/dL (31.5-36.5); Mean Corpuscular Volume 89 fL (80-100); NEUTROPHILS ABSOLUTE AUTO 1.85 K/mm3 (1.96-9.15); NEUTROPHILS PERCENT AUTO 65 % (41-73); RDW Coefficient Variation 16.8 % (11.7-14.2); Red Blood Cell Count 3.66 M/mm3 (4.30-5.90); White Blood Cell Count 2.83 K/mm3 (4.00-11.30)
[2021-09-06 06:12] LABS: Platelet Count 23 K/mm3 (150-400)
[2021-09-06 06:52] LABS: Alanine Aminotransfer (ALT/SGP 24 U/L (12-78); Albumin, Blood 1.5 g/dL (3.4-5.0); Albumin/Globulin Ratio 0.4 (0.8-1.8); Alk Phos 87 U/L (50-136); Anion Gap 9 mmol/L (6-16); Aspartate Aminotrans (AST/SGOT 45 U/L (12-37); Bilirubin, Direct 0.9 mg/dL (0.0-0.3); Bilirubin, Indirect 0.7 mg/dL (0.1-0.7); Bilirubin, Total 1.6 mg/dL (0.1-1.0); Blood Urea Nitrogen 16 mg/dL (8-24); Bun/Creatinine Ratio 27.4 (12.0-20.0); CO2, Blood 18 mmol/L (21-32); Calcium, Blood 7.4 mg/dL (8.5-10.1); Chloride, Blood 120 mmol/L (98-108); Creatinine, Blood 0.59 mg/dL (0.60-1.20); Glomerular Filtration Rate >60 (60-); Glucose, Blood 242 mg/dL (70-99); Phosphorus, Blood 3.2 mg/dL (2.5-4.9); Potassium, Blood 3.9 mmol/L (3.5-5.5); Sodium, Blood 147 mmol/L (136-145); Total Protein, Blood 5.5 g/dL (6.4-8.2)
--- NOTE | 2021-09-06 17:02 | NUR ---
PT LETHARGIC IN AM, MORE ALERT BY END OF SHIFT. ORIENTATION WAXES/WANES THROUGHOUT SHIFT. VSS. NO C/O PAIN. AFEBRILE. FC MAINTAINED WITH AUO. NO BM. SPEECH EVAL COMPLETED- DIET ADVANCED, PPN CONTINUED. WORKED WITH PT- MIN ASSIST WITH 1 PERSON USING FWW AND GAIT BELT. FREQUENT ROUNDS TO ENSURE PT SAFETY. PT IN NO APPARENT DISTRESS AT THIS TIME. WILL CONINTUE TO MONITOR UNTIL TRANSFER OF CARE TO ONCOMING RN.
[2021-09-07 04:30] LABS: BASOPHILS ABSOLUTE AUTO 0.03 K/mm3 (0.00-0.23); BASOPHILS PERCENT AUTO 1 % (0-2); EOSINOPHILS PERCENT AUTO 3 % (0-6); Hematocrit 28.8 % (37.0-53.0); Hemoglobin 8.5 g/dL (13.5-17.5); IMMATURE GRAN ABSOLUTE AUTO 0.03 K/mm3 (0.00-0.10); IMMATURE GRAN PERCENT AUTO 1 % (0-1); LYMPHOCYTES ABSOLUTE AUTO 0.58 K/mm3 (0.84-5.20); LYMPHOCYTES PERCENT AUTO 17 % (21-46); MONOCYTES ABSOLUTE AUTO 0.26 K/mm3 (0.16-1.47); MONOCYTES PERCENT AUTO 8 % (4-13); Mean Corpuscular HGB Conc 29.5 g/dL (31.5-36.5); Mean Corpuscular Volume 88 fL (80-100); NEUTROPHILS ABSOLUTE AUTO 2.42 K/mm3 (1.96-9.15); NEUTROPHILS PERCENT AUTO 71 % (41-73); RDW Coefficient Variation 17.1 % (11.7-14.2); RDW Standard Deviation 53.5 fL (35.1-46.3); Red Blood Cell Count 3.27 M/mm3 (4.30-5.90); White Blood Cell Count 3.42 K/mm3 (4.00-11.30)
[2021-09-07 04:39] LABS: Platelet Count 21 K/mm3 (150-400)
[2021-09-07 05:43] LABS: Alanine Aminotransfer (ALT/SGP 27 U/L (12-78); Albumin, Blood 1.4 g/dL (3.4-5.0); Albumin/Globulin Ratio 0.4 (0.8-1.8); Alk Phos 88 U/L (50-136); Anion Gap 4 mmol/L (6-16); Aspartate Aminotrans (AST/SGOT 44 U/L (12-37); Bilirubin, Total 1.5 mg/dL (0.1-1.0); Blood Urea Nitrogen 16 mg/dL (8-24); Bun/Creatinine Ratio 24.9 (12.0-20.0); CO2, Blood 21 mmol/L (21-32); Calcium, Blood 7.3 mg/dL (8.5-10.1); Chloride, Blood 117 mmol/L (98-108); Creatinine, Blood 0.64 mg/dL (0.60-1.20); Globulin, Blood 3.8 g/dL (2.2-4.0); Glomerular Filtration Rate >60 (60-); Glucose, Blood 312 mg/dL (70-99); Potassium, Blood 4.2 mmol/L (3.5-5.5); Sodium, Blood 142 mmol/L (136-145); Total Protein, Blood 5.2 g/dL (6.4-8.2)
--- NOTE | 2021-09-07 18:03 | NUR ---
PT HAS REFUSED ORAL CARE T/O THE DAY. AT THE BEGINING OF THE SHIFT PT WAS ON PUREE DIET, HE BEGAN ASPIRATING WAS MADE NPO, PT WAS RE-EVALUATED BY SPEECH THERAPY THIS EVENING AND REMAINS NPO. PPN TO CONTINUE T/O WEEKEND WITH AND WILL HAVE BARIUM SWALLOW STUDY ON FRIDAY. PT WITH GARBLED SPEECH CONTINUES. PT C/O CP WHEN HE ATE OR DRANK TODAY PRIOR TO NPO. HTN NOTED TOWARDS THE END OF THE SHIFT. PT ALERT, HE IS ABLE TO ANSWER DATE AND PLACE CORRECTLY BUT ONLY WHEN READING THE WHITE BOARD IN ROOM. VSS. PT NOW DENIES CP. REPEAT CHEST XR THIS EVENING AND EKG POST ASPIRATION
--- NOTE | 2021-09-08 03:50 | NUR ---
Pt is becoming more alert and less cooperative with care. a/ox4 with garbled speach, but speach is improving. pt is c/o npo status, refusing varner, refusing recal tube, refusing ppn. will discuss patients goals of care with day team. pt expresses he would like leave AMA, but changes his mind when reminded of his generalized weakness and his lack of transportation.
[2021-09-08 03:56] LABS: BASOPHILS ABSOLUTE AUTO 0.02 K/mm3 (0.00-0.23); BASOPHILS PERCENT AUTO 0 % (0-2); EOSINOPHILS ABSOLUTE AUTO 0.14 K/mm3 (0.00-0.68); EOSINOPHILS PERCENT AUTO 2 % (0-6); Hematocrit 29.9 % (37.0-53.0); Hemoglobin 9.1 g/dL (13.5-17.5); IMMATURE GRAN ABSOLUTE AUTO 0.05 K/mm3 (0.00-0.10); IMMATURE GRAN PERCENT AUTO 1 % (0-1); LYMPHOCYTES ABSOLUTE AUTO 0.77 K/mm3 (0.84-5.20); LYMPHOCYTES PERCENT AUTO 12 % (21-46); MONOCYTES ABSOLUTE AUTO 0.37 K/mm3 (0.16-1.47); MONOCYTES PERCENT AUTO 6 % (4-13); Mean Corpuscular HGB 26.2 pg (26.0-34.0); Mean Corpuscular HGB Conc 30.4 g/dL (31.5-36.5); Mean Corpuscular Volume 86 fL (80-100); NEUTROPHILS PERCENT AUTO 79 % (41-73); RDW Coefficient Variation 17.2 % (11.7-14.2); RDW Standard Deviation 51.6 fL (35.1-46.3); Red Blood Cell Count 3.47 M/mm3 (4.30-5.90); White Blood Cell Count 6.45 K/mm3 (4.00-11.30)
[2021-09-08 04:04] LABS: Platelet Count 24 K/mm3 (150-400)
[2021-09-08 04:26] LABS: Campylobacter Sp Not Detected (NOT DETECT)
[2021-09-08 04:27] LABS: Adenovirus F 40/41 Not Detected (NOT DETECT); Astrovirus Not Detected (NOT DETECT); Cryptosporidium Not Detected (NOT DETECT); Cyclospora Cayetanensis Not Detected (NOT DETECT); E. Coli O157 Not Detected (NOT DETECT); Entamoeba Histolytica Not Detected (NOT DETECT); Enteroaggregative E. coli-EAEC Not Detected (NOT DETECT); Enteropathogenic E. coli-EPEC Not Detected (NOT DETECT); Enterotoxigenic E. coli-ETEC Not Detected (NOT DETECT); Giardia Lamblia Not Detected (NOT DETECT); Norovirus GI/GII Not Detected (NOT DETECT); Plesiomonas Shigelloides Not Detected (NOT DETECT); Rotavirus A Not Detected (NOT DETECT); Salmonella Sp Not Detected (NOT DETECT); Sapovirus Not Detected (NOT DETECT); Shiga Toxin-prod E. coli-STEC Not Detected (NOT DETECT); Shigella/Enteroin E. coli-EIEC Not Detected (NOT DETECT); Vibrio Cholerae Not Detected (NOT DETECT); Vibrio Sp Not Detected (NOT DETECT); Yersinia Enterocolitica Not Detected (NOT DETECT)
[2021-09-08 04:34] LABS: Albumin, Blood 1.5 g/dL (3.4-5.0); Anion Gap 3 mmol/L (6-16); Blood Urea Nitrogen 15 mg/dL (8-24); Bun/Creatinine Ratio 29.5 (12.0-20.0); CO2, Blood 24 mmol/L (21-32); Calcium, Blood 7.4 mg/dL (8.5-10.1); Chloride, Blood 115 mmol/L (98-108); Creatinine, Blood 0.51 mg/dL (0.60-1.20); Glomerular Filtration Rate >60 (60-); Glucose, Blood 99 mg/dL (70-99); Phosphorus, Blood 2.1 mg/dL (2.5-4.9); Potassium, Blood 3.9 mmol/L (3.5-5.5); Sodium, Blood 142 mmol/L (136-145)
--- NOTE | 2021-09-08 09:07 | NUR ---
Pt was very agitated, saying that he wanted something to eat and drink. Dr. Viveros rounded at the time when he was sitting on the side of the bed, and had conversation about the pt's wishes. Speech therapist was called and said that pt failed the swallow eval the past two days, so plan was for a modified barium swallow evaluation to be done on Friday. Pt is angry, alert and oriented, says that he is going to pull out his IV, call a cab and go home to [facility]. Dr. Viveros said that nursing could do a bedside swallow eval seeing as the pt was so alert and oriented now today, and possibly give the pt what he would like, only in small amounts. This was to encourage the pt's compliance with ongoing treatment here at the hospital and prevent an unsafe discharge Against Medical Advice.
--- NOTE | 2021-09-08 09:17 | NUR ---
PT WAS FOUND OUTSIDE ROOM IN HALLWAY STATING "I'M GOING OUTSIDE TO HAVE A SMOKE." THIS RN NOTIFIED THE PT OF THE NO-SMOKING POLICY ON HOSPITAL GROUNDS. PT RESPONDED WITH EXPLITIVES AND RETURNED TO ROOM.
--- NOTE | 2021-09-08 11:23 | NUR ---
PT REFUSED ALL CARE. WHEN THIS RN WOULD ATTEMPT TO CONVERSE THE PT WOULD SHOUT EXPLITIVES AND STATE THAT THEY WERE LEAVING. PT CALLED AND ASKED THIS RN TO CALL A CAB AND WHEN THE REQUEST WAS REFUSED, PT SHOUTED EXPLITIVES. PT AMBULATED SELF TO HOSPITAL EXIT, PROVIDER WAS NOTIFIED BY PHONE.
== END 2021-09-08 11:23 | disposition left against medical advice (07) | DRG 894 ==
LOC: ER 07:05 → PCU 07:06
PROVIDERS: Emergency Medicine; Family Medicine; Internal Medicine; ADMIT Internal Medicine
DX: F10.231 Alcohol dependence with withdrawal delirium (principal); G92.8 Other toxic encephalopathy; K92.2 Gastrointestinal hemorrhage, unspecified; D61.818 Other pancytopenia; E87.1 Hypo-osmolality and hyponatremia; E46 Unspecified protein-calorie malnutrition; E87.0 Hyperosmolality and hypernatremia; K72.90 Hepatic failure, unspecified without coma; M43.17 Spondylolisthesis, lumbosacral region; E11.65 Type 2 diabetes mellitus with hyperglycemia; E87.6 Hypokalemia; I10 Essential (primary) hypertension; F17.210 Nicotine dependence, cigarettes, uncomplicated; K70.30 Alcoholic cirrhosis of liver without ascites; Z91.19 Patient's noncompliance with other medical treatment and regimen; E88.09 Other disorders of plasma-protein metabolism, not elsewhere classified; D63.8 Anemia in other chronic diseases classified elsewhere; Z78.1 Physical restraint status; Z20.822 Contact with and (suspected) exposure to COVID-19; Z53.29 Procedure and treatment not carried out because of patient's decision for other reasons
CPT/HCPCS: 0097U; 0241U; 36415; 36600; 51702; 70450; 71045; 72220; 80048; 80053; 80069; 81001; 82010; 82140; 82248; 82607; 82728; 82746; 82803; 82947; 83540; 83550; 83735; 83880; 84100; 84295; 84478; 84484; 85014; 85018; 85025; 85027; 85610; 85730; 86850; 86900; 86901; 92526; 92610; 93005; 93010; 94760; 95819; 96365; 96366; 96367; 96368; 96375; 96376; 97110; 97161; 97166; 97530; 99285-25; A9270; C1751; C9113; G0378; G0480; J0295; J0360; J0610; J0696; J1815; J2060; J2354; J2405; J3010; J3411; J3470; J3475; J3480; J7030; J7042; J7050; J7060; J7070; J7120; P9046

== ENCOUNTER 2021-10-16 11:03 | Inpatient (IN) | payer MEDICARE, OTHER ==
[~2021-10-16] VITALS: Ht 175.3 cm; Wt 82.0 kg
[~2021-10-16 11:03] MED LIST: ADMELOG SO100 UNIT/2 SC; FURO40 PO; LANTUS SOL100 UNIT/1 SC; METF500C PO; OMEP20ER PO; ROXICODONE5 MG PO; SPIR25 PO
[2021-10-16 11:58] LABS: BASOPHILS ABSOLUTE AUTO 0.03 K/mm3 (0.00-0.23); BASOPHILS PERCENT AUTO 1 % (0-2); EOSINOPHILS ABSOLUTE AUTO 0.06 K/mm3 (0.00-0.68); EOSINOPHILS PERCENT AUTO 2 % (0-6); Hemoglobin 10.2 g/dL (13.5-17.5); IMMATURE GRAN ABSOLUTE AUTO 0.01 K/mm3 (0.00-0.10); IMMATURE GRAN PERCENT AUTO 0 % (0-1); LYMPHOCYTES ABSOLUTE AUTO 0.54 K/mm3 (0.84-5.20); LYMPHOCYTES PERCENT AUTO 17 % (21-46); MONOCYTES ABSOLUTE AUTO 0.28 K/mm3 (0.16-1.47); MONOCYTES PERCENT AUTO 9 % (4-13); Mean Corpuscular HGB 24.1 pg (26.0-34.0); Mean Corpuscular HGB Conc 30.9 g/dL (31.5-36.5); Mean Corpuscular Volume 78 fL (80-100); NEUTROPHILS ABSOLUTE AUTO 2.36 K/mm3 (1.96-9.15); NEUTROPHILS PERCENT AUTO 72 % (41-73); RDW Coefficient Variation 16.6 % (11.7-14.2); RDW Standard Deviation 47.4 fL (35.1-46.3); Red Blood Cell Count 4.23 M/mm3 (4.30-5.90); White Blood Cell Count 3.28 K/mm3 (4.00-11.30)
[2021-10-16 12:01] LABS: Platelet Count 16 K/mm3 (150-400)
[2021-10-16 12:12] LABS: International Normalized Ratio 1.19; Prothrombin Time Results 12.4 Sec (9.7-11.5)
[2021-10-16 12:24] LABS: Alanine Aminotransfer (ALT/SGP 36 U/L (12-78); Albumin/Globulin Ratio 0.4 (0.8-1.8); Alk Phos 153 U/L (50-136); Anion Gap 8 mmol/L (6-16); Aspartate Aminotrans (AST/SGOT 37 U/L (12-37); Bilirubin, Total 1.5 mg/dL (0.1-1.0); Blood Urea Nitrogen 13 mg/dL (8-24); Bun/Creatinine Ratio 20.5 (12.0-20.0); CO2, Blood 21 mmol/L (21-32); Calcium, Blood 8.4 mg/dL (8.5-10.1); Chloride, Blood 98 mmol/L (98-108); Creatinine, Blood 0.63 mg/dL (0.60-1.20); Globulin, Blood 4.5 g/dL (2.2-4.0); Glomerular Filtration Rate >60 (60-); Glucose, Blood 534 mg/dL (70-99); Potassium, Blood 4.1 mmol/L (3.5-5.5); Sodium, Blood 127 mmol/L (136-145); Total Protein, Blood 6.5 g/dL (6.4-8.2)
[2021-10-16 20:07] LABS: Glucose, Blood 615 mg/dL (70-99)
[2021-10-16 21:28] LABS: Glucose, Blood 554 mg/dL (70-99)
--- NOTE | 2021-10-17 04:37 | NUR ---
PT WAS ADMITTED THIS SHIFT FROM THE ED. HE WAS GIVEN ONE UNIT OF PLATLETES SHORTLY AFTER HIS ARRIVAL ON THIS UNIT AND HE TOLERATED IT WELL. BLOOD SUGAR CHECK WAS AT > 500 AFTER HAVING BEEN GIVEN INSULIN IN ED ( 10 UNITS HUMULOG AND 35 UNITS GLARGINE). BY 0 IT HAD COME DOWN TO 456 AND HOSPITALIST WAS CALLED. GLARGINE 10 UNITS WAS ORDERED AND BY 0400 BLOOD SUGAR WAS DOWN TO 356.
[2021-10-17 05:22] LABS: Hematocrit 30.6 % (37.0-53.0); Hemoglobin 9.4 g/dL (13.5-17.5); Mean Corpuscular HGB 23.9 pg (26.0-34.0); Mean Corpuscular HGB Conc 30.7 g/dL (31.5-36.5); Mean Corpuscular Volume 78 fL (80-100); RDW Coefficient Variation 16.8 % (11.7-14.2); Red Blood Cell Count 3.93 M/mm3 (4.30-5.90)
[2021-10-17 05:33] LABS: International Normalized Ratio 1.25; Platelet Count 28 K/mm3 (150-400); Prothrombin Time Results 12.9 Sec (9.7-11.5)
[2021-10-17 05:51] LABS: Anion Gap 6 mmol/L (6-16); Blood Urea Nitrogen 14 mg/dL (8-24); Bun/Creatinine Ratio 21.9 (12.0-20.0); CO2, Blood 24 mmol/L (21-32); Calcium, Blood 8.1 mg/dL (8.5-10.1); Chloride, Blood 102 mmol/L (98-108); Creatinine, Blood 0.64 mg/dL (0.60-1.20); Glomerular Filtration Rate >60 (60-); Glucose, Blood 347 mg/dL (70-99); Potassium, Blood 3.7 mmol/L (3.5-5.5); Sodium, Blood 132 mmol/L (136-145)
[2021-10-17 10:43] LABS: Platelet Count 36 K/mm3 (150-400)
--- NOTE | 2021-10-17 15:39 | NUR ---
PARACENTISIS PT TAKEN TO US FOR PARACENTISIS VIA WHEELCHAIR. THE PT WAS GIVEN A UNIT OF PLATLETS JUST PRIOR TO THE PROCEDURE FOR A TOTAL OF 2 UNITS TODAY
--- NOTE | 2021-10-17 17:18 | NUR ---
PT IS A/OX3, PLEASANT AND COOPERATIVE. PT IS SOMEWHAT JAUNDICE/DUSKY LOOKIG HAS SLURRED SPEECH THAT IS HARD TO UNDERSTAND AT TIMES. THE PT IS UP WITH MINIMAL ASSIST WEAK ON HIS FEET AND DIZZY WHILE SITTING UP. THE PTS ABD IS GROSSLY DISTENDED AND FIRM. 3+ EDEMA FROM ABD TO FEET BILATERALY. THE PT WAS GIVEN PLATLETS TODAY AND TAKEN FOR A THERAPUTIC PARENCENTIS WHERE 7.1 LITERS WAS REMOVED OF ACITIES. PT REPORTS FEELING BETTER AFTER THE FLUID REMOVAL. PT APPEARS TO BE BREATHING EASILY ON RA AT THIS TIME. CALL LIGHT IN REACH. WILL CONTINUE TO MONITOR AND ASSESS FOR CHANGES
--- NOTE | 2021-10-18 01:43 | NUR ---
PT GOT UP TO BATHROOM BY HIMSELF, BUT ONCE IN THERE, HE WAS ASLEEP ON THE TOILET. HE HAD A BM, BUT STOOL WAS ON THE FLOOR, ON THE TOILET, AND ON HIM. CLEANED HIM UP AND HAD TO ASSIST HIM BACK TO BED. VERY WEAK AND UNSTEADY. BED ALARM ON.
--- NOTE | 2021-10-18 04:21 | NUR ---
PT RESTING IN BED. UP TO BATHROOM, UNSTEADY AND LETHARGIC. DIFFICULT TO UNDERSTAND. ASCITES AND LEG EDEMA PRESENT. CONTINUE POC.
[2021-10-18 05:18] LABS: BASOPHILS ABSOLUTE AUTO 0.01 K/mm3 (0.00-0.23); BASOPHILS PERCENT AUTO 0 % (0-2); EOSINOPHILS ABSOLUTE AUTO 0.05 K/mm3 (0.00-0.68); EOSINOPHILS PERCENT AUTO 2 % (0-6); Hematocrit 26.2 % (37.0-53.0); IMMATURE GRAN ABSOLUTE AUTO 0.01 K/mm3 (0.00-0.10); IMMATURE GRAN PERCENT AUTO 0 % (0-1); LYMPHOCYTES ABSOLUTE AUTO 0.59 K/mm3 (0.84-5.20); LYMPHOCYTES PERCENT AUTO 19 % (21-46); MONOCYTES ABSOLUTE AUTO 0.31 K/mm3 (0.16-1.47); MONOCYTES PERCENT AUTO 10 % (4-13); Mean Corpuscular HGB 23.7 pg (26.0-34.0); Mean Corpuscular HGB Conc 30.5 g/dL (31.5-36.5); Mean Corpuscular Volume 78 fL (80-100); NEUTROPHILS ABSOLUTE AUTO 2.18 K/mm3 (1.96-9.15); NEUTROPHILS PERCENT AUTO 69 % (41-73); RDW Coefficient Variation 16.9 % (11.7-14.2); RDW Standard Deviation 47.8 fL (35.1-46.3); Red Blood Cell Count 3.37 M/mm3 (4.30-5.90); White Blood Cell Count 3.15 K/mm3 (4.00-11.30)
[2021-10-18 05:27] LABS: Platelet Count 33 K/mm3 (150-400)
[2021-10-18 05:52] LABS: Alanine Aminotransfer (ALT/SGP 29 U/L (12-78); Albumin, Blood 2.1 g/dL (3.4-5.0); Albumin/Globulin Ratio 0.6 (0.8-1.8); Alk Phos 111 U/L (50-136); Anion Gap 5 mmol/L (6-16); Aspartate Aminotrans (AST/SGOT 28 U/L (12-37); Bilirubin, Total 1.1 mg/dL (0.1-1.0); Blood Urea Nitrogen 14 mg/dL (8-24); Bun/Creatinine Ratio 20.1 (12.0-20.0); CO2, Blood 25 mmol/L (21-32); Chloride, Blood 106 mmol/L (98-108); Globulin, Blood 3.8 g/dL (2.2-4.0); Glomerular Filtration Rate >60 (60-); Glucose, Blood 320 mg/dL (70-99); Potassium, Blood 4.1 mmol/L (3.5-5.5); Sodium, Blood 136 mmol/L (136-145); Total Protein, Blood 5.9 g/dL (6.4-8.2)
--- NOTE | 2021-10-18 08:30 | NUR ---
TRANSFER TO PCU ATTEMPTED TO WAKE THE PT THIS AM FOR BREAKFAST, PT WOULD NOT AWAKEN STERNAL RUB WAS GIVEN X2 THE PT STILL DID NOT RESPOND. CHARGE NURSE CIELO WAS CALLED TO THE ROOM AND THE NITRATING ACID MIXER WAS CALLED. THE PTS VITAL SIGNS WERE STABLE PT WAS BREATHING EVENLY. IT WAS DECICEDED TO TRANSFER THE PT TO PCU FOR CLOSER OBSERVATION . REPORT WAS CALLED TO THE RECIEVING RN
[2021-10-18 08:45] LABS: Base Excess Venous 3.6 mmol/L; Bicarbonate Venous 27.8 mmol/L (24.0-30.0); PCO2 Venous 29.7 mmHg (38-42); PO2 Venous 166 mmHg (38-42)
[2021-10-18 08:46] LABS: pH Blood Venous 7.55 (7.34-7.37)
--- NOTE | 2021-10-18 08:54 | NUR ---
Arrived to room with WASTE EXAMINER in progress. Pt in unresponsive. Pt to transfer to PCU. Faxed [place] medical records request for AD/POLST. No NOK or healthcare proxy listed. No PCP listed. Palliative Care will remain available.
--- NOTE | 2021-10-18 11:05 | NUR ---
UPDATE NG TUBE ATTEMPTED TO BE PLACED, RESISTANCE MET 2-3 INCHES IN NARES. TUBE RETRACTED, BRIGHT RED BLOOD PRESENT ON PORTION OF NG TUBE THAT WAS INSERTED. RT PLACED A NASAL TRUMPET. SUCTION THROUGH TRUMPET PRODUCED FAIR AMOUNT OF BRIGHT BLOOD. DR NOTIFIED AT 1108. INSTRUCTED THIS RN NOT TO PLACE NG TUBE.
[2021-10-18 12:02] LABS: Hemoglobin 9.3 g/dL (13.5-17.5)
[2021-10-18 14:36] LABS: Hematocrit 31.3 % (37.0-53.0); Hemoglobin 9.3 g/dL (13.5-17.5)
--- NOTE | 2021-10-18 15:02 | NUR ---
TRANSFER UPDATE REPORT FOR PT RECIEVED FROM MEDICAL FLOOR NURSE AT 0840. PT ARRIVED TO UNIT AT 0845 VIA HOSPITAL BED AFTER GOING TO IMAGING FOR CT. PT ARRIVED TO UNIT ON RA. PT SLID TO PCU BED BY 4 MEDICAL STAFF. PT NOT RESPONDING TO STILMULI UPON ARRIVAL TO UNIT. MORNING PO MEDS NOT GIVEN DUE TO ALTERED LEVEL OF CONSCIOUSNESS. NG TUBE ATTEMPTED PER ORDERS, NG TUBE HELD DUE TO PT BLEEDING FROM NOSE, DR NOTIFIED.
[2021-10-18 18:29] LABS: Hematocrit 33.1 % (37.0-53.0); Hemoglobin 9.8 g/dL (13.5-17.5)
--- NOTE | 2021-10-18 18:43 | NUR ---
SHIFT SUMMARY PT ARRIVED TO UNIT NON-RESPONSIVE TO VERBAL/PAIN STIMULI. PT RECIEVED 3 LACTULOSE ENEMAS PER EMAR. PT MENTATION IMPROVED TOWARDS MID-SHIFT, BY END OF SHIFT PT WAS ANSWERING QUESTIONS APPROPIATELY. LACTULOSE CHANGED TO PO PER DR ORDER. PT SBP'S HIGH RANGING FROM 140-150'S. PT O2 SATS DROPPED WHEN PT FIRST ARRIVED TO UNIT, 6L NC APPLIED, SATS RETURNED TO 90'2, PT MAINTAINING ON 2L NC. OTHER VSS THROUGHOUT SHIFT. NO REPORT OF CHEST PAIN/PRESSURE THROUGHOUT SHIFT.
--- NOTE | 2021-10-18 22:53 | NUR ---
CARE ASSUMPTION UPON CARE ASSUMPTION, PT ALERT, ORIENTED TO PLACE, FOLLOWS DIRECTIONS AND ANSWERS QUESTIONS APPROPRIATELY. PT WAS EATING SANDWICH IN ROOM. SP02>92% ON 6L NC. NOW TITRATED TO RA, STILL SATTING 94%. TELEMETRY SHOWS NSR, HR 100S. PT CONSTANTLY PUSHING CALL LIGHT FOR FOOD. ATE ALL OF THE SANDWICHES IN THE FRIDGE. PT ASKED FOR PIZZA BC HE WAS SICK OF [facility]. TOLD PT WE DO NOT HAVE PIZZA. PT STATED HE WANTED TO GO HOME. PT STATES, "WHATS THE DIFFERENCE IF I SIT HERE OR I SIT AT HOME". PT EDUCATED ON GETTING MEDICATION LIKE LACTOLOSE HERE. PT STATES "SO? YOU'RE JUST PROLONGING THE INEVITABLE. i CANT GET A PERSCRIPTION IN [place] SO ILL BE BACK HERE SOON". 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 PT AGREES TO STAY IN HOSPITAL FOR AT LEAST HIS MIDNIGHT DOSE OF LACTOLOSE. PT FINISHED TRAY OF FOOD. PT CURRENTLY STATES, "WHAT CAN I HAVE FOR LUNCH NOW?". CALL LIGHT IN [place]ACH.
--- NOTE | 2021-10-19 06:20 | NUR ---
SHIFT SUMMARY VSS, NO ACUTE CHANGES FROM PREVIOUS NOTE. PT CONTINUED TO ASK FOR FOOD AND EAT FOR MOST OF SHIFT. SLEPT FOR ABOUT 3 HOURS. UPON AWAKING THIS AM, PT AGITATED, NOTICED JOIE STATIN INFUSING IN IV, STATED HE DIDNT WANT ANY FLUIDS "I DONT WANT VITAMINS" PT YELLED. RN EXPLAINED IT WASNT VITAMINS BUT PT PROCEEDED TO BREAK IV TUBING IN HALF. BLOOD CAME OUT OF IV AND SOAKED GOWN. IV FLUSHED, SALINE LOCKED, GOWN REPLACED. JOIE STATIN NO LONGER INFUSING. PT CONTINUES TO EXPRESS "THIS IS JUST PROLONGING THE INEVITABLE" "I DONT HAVE PRESCRIPTIONS" FOR HOME USE. PT WANTS TO GO HOME, BUT IS WAITING UNTIL AFTER BREAKFAST. CALL LIGHT IN REACH.
[2021-10-19 06:48] LABS: Source, Urine Foley catheter
[2021-10-19 07:02] LABS: Appearance, Urine Clear (Clear); Bilirubin, Urine Neg (Neg); Blood, Urine 4+ (Neg); Color, Urine Yellow (P-Yellow); Glucose Qualitative, Urine 4+ (Neg); Ketones, Urine Neg (Neg); Leukocyte Esterase, Urine Neg (Neg); Nitrite, Urine Neg (Neg); Protein, Urine 2+ (Neg); Specific Gravity, Urine 1.015 (1.003-1.022); Urobilinogen, Urine NORM (Normal)
[2021-10-19 07:32] LABS: Bacteria Rare /hpf; Squamous Epithelial Cells Rare /hpf (Few)
[2021-10-19 07:36] LABS: Hyaline Casts 0-2 /lpf (0-2)
[2021-10-19 07:37] LABS: WBC Cast 0-2 /lpf (0)
--- NOTE | 2021-10-19 08:29 | NUR ---
Received call from dean of instruction Gabe. lieutenant shift supervisor reported Pt was wanting to leave AMA. Pt may benefit from completing a POLST. Pt sitting on edge of bed upon arrival. Pt appears moderately anxious and mildly confused. Pt expresses wishes to not receive nutrition artificially. He expresses concerns regarding not having a PCP and therefore unable to obtain needed prescriptions. He reports having no transportation. After brief discussion with Pt he is agreeable to remain in the hospital for a couple of days. Pt not appropirate to complete POLST form at this time due to mild confusion and agitation. Will attempt POLST discussion with him at a later time. Palliative Care will remain available.
--- NOTE | 2021-10-19 11:05 | NUR ---
PT MORNING GLUCOSE OF 357, TREATED WITH HIGH SLIDING SCALE PER EMAR ALONG WITH LONG ACTING INSULIN PER EMAR. CBG CHECKED AGAIN AT 1102, GLUCOSE LEVEL OF 364, DR NOTIFIED AT 1104.
--- NOTE | 2021-10-19 14:21 | NUR ---
ORDERS FOR PARACENTESIS, ULTRASOUND CALLED THIS RN DUE TO PT LOW PLATELET COUNT OF 33 THAT WAS DRAWN 10/18 AT 0452. ULTRASOUND ASKED FOR ANOTHER BLOOD DRAW TO SEE IF PT PLATELETS HAVE INCREASED. THIS RN INFORMED DR OF REQUEST OF ULTRASOUND.
[2021-10-19 15:15] LABS: International Normalized Ratio 1.28; Prothrombin Time Results 13.2 Sec (9.7-11.5)
--- NOTE | 2021-10-19 15:33 | NUR ---
FOLLOW-UP APPOINTMENT SETUP BY CARE MANAGEMENT FOR A DR LUCILA BA AT [facility] 10/31/2021 AT 11:30AM. APPOINTMENT INFORMATION IN FRONT OF CHART.
[2021-10-19 15:53] LABS: BASOPHILS ABSOLUTE AUTO 0.04 K/mm3 (0.00-0.23); BASOPHILS PERCENT AUTO 1 % (0-2); EOSINOPHILS ABSOLUTE AUTO 0.07 K/mm3 (0.00-0.68); EOSINOPHILS PERCENT AUTO 2 % (0-6); Hematocrit 34.6 % (37.0-53.0); Hemoglobin 10.4 g/dL (13.5-17.5); IMMATURE GRAN ABSOLUTE AUTO 0.02 K/mm3 (0.00-0.10); IMMATURE GRAN PERCENT AUTO 0 % (0-1); LYMPHOCYTES ABSOLUTE AUTO 0.54 K/mm3 (0.84-5.20); LYMPHOCYTES PERCENT AUTO 12 % (21-46); MONOCYTES ABSOLUTE AUTO 0.38 K/mm3 (0.16-1.47); MONOCYTES PERCENT AUTO 8 % (4-13); Mean Corpuscular HGB 23.9 pg (26.0-34.0); Mean Corpuscular HGB Conc 30.1 g/dL (31.5-36.5); Mean Corpuscular Volume 80 fL (80-100); NEUTROPHILS ABSOLUTE AUTO 3.62 K/mm3 (1.96-9.15); NEUTROPHILS PERCENT AUTO 78 % (41-73); RDW Coefficient Variation 17.2 % (11.7-14.2); Red Blood Cell Count 4.35 M/mm3 (4.30-5.90); White Blood Cell Count 4.67 K/mm3 (4.00-11.30)
[2021-10-19 15:58] LABS: Platelet Count 32 K/mm3 (150-400)
--- NOTE | 2021-10-19 16:06 | NUR ---
LAB CONTACTED THIS RN ABOUT CRITICAL LOW PLATELET OF 32 AT 1558. NOTIFIED AND INSTRUCTED RN TO SEE IF ULTRASOUND WILL DO PARACENTESIS. ULTRASOUND INFORMED THIS RN THAT PT WILL NEED 1-2 UNITS OF PLATELETS. UPDATED OF ULTRASOUND REQUEST, DR TO PUT IN ORDERS.
[2021-10-19 19:09] LABS: BASOPHILS ABSOLUTE AUTO 0.04 K/mm3 (0.00-0.23); BASOPHILS PERCENT AUTO 1 % (0-2); EOSINOPHILS ABSOLUTE AUTO 0.09 K/mm3 (0.00-0.68); EOSINOPHILS PERCENT AUTO 2 % (0-6); Hematocrit 30.8 % (37.0-53.0); Hemoglobin 9.1 g/dL (13.5-17.5); IMMATURE GRAN ABSOLUTE AUTO 0.03 K/mm3 (0.00-0.10); IMMATURE GRAN PERCENT AUTO 1 % (0-1); LYMPHOCYTES ABSOLUTE AUTO 0.56 K/mm3 (0.84-5.20); LYMPHOCYTES PERCENT AUTO 12 % (21-46); MONOCYTES ABSOLUTE AUTO 0.46 K/mm3 (0.16-1.47); MONOCYTES PERCENT AUTO 10 % (4-13); Mean Corpuscular HGB 23.7 pg (26.0-34.0); Mean Corpuscular HGB Conc 29.5 g/dL (31.5-36.5); Mean Corpuscular Volume 80 fL (80-100); NEUTROPHILS ABSOLUTE AUTO 3.51 K/mm3 (1.96-9.15); NEUTROPHILS PERCENT AUTO 75 % (41-73); RDW Coefficient Variation 17.1 % (11.7-14.2); RDW Standard Deviation 49.7 fL (35.1-46.3); Red Blood Cell Count 3.84 M/mm3 (4.30-5.90); White Blood Cell Count 4.69 K/mm3 (4.00-11.30)
--- NOTE | 2021-10-19 19:17 | NUR ---
SHIFT SUMMARY PT A/O X3-4, PERIODS OF CONFUSSION. BP'S ELEVATED THROUGHOUT SHIFT WITH SBP RANGING 150-160'S, NOTIFIED. OTHER VSS THROUGHOUT SHIFT WITH O2 SATS >96% ON RA. NO REPORT OF CHEST PAIN/PRESSURE THROUGHOUT SHIFT. NO REPORT OF SOB/DYSPNEA THROUGHOUT SHIFT. PT REPORTED NAUSEA AND REFLUX, TREATED PER EMAR. PT RECIEVED 1 UNIT OF PLATELETS DUE TO PLATELET COUNT OF 32; PLAN FOR PARACENTESIS. NOTIFIED OF PLATELET LEVELS. PT ABLE TO TRANSFER TO BEDSIDE COMMODE, LUISITO. PT USING URINAL AT BEDSIDE.
[2021-10-19 19:20] LABS: Platelet Count 35 K/mm3 (150-400)
[2021-10-20 03:42] LABS: BASOPHILS ABSOLUTE AUTO 0.03 K/mm3 (0.00-0.23); BASOPHILS PERCENT AUTO 1 % (0-2); EOSINOPHILS ABSOLUTE AUTO 0.08 K/mm3 (0.00-0.68); EOSINOPHILS PERCENT AUTO 2 % (0-6); Hematocrit 29.2 % (37.0-53.0); Hemoglobin 8.7 g/dL (13.5-17.5); IMMATURE GRAN ABSOLUTE AUTO 0.01 K/mm3 (0.00-0.10); IMMATURE GRAN PERCENT AUTO 0 % (0-1); LYMPHOCYTES ABSOLUTE AUTO 0.57 K/mm3 (0.84-5.20); LYMPHOCYTES PERCENT AUTO 14 % (21-46); MONOCYTES ABSOLUTE AUTO 0.35 K/mm3 (0.16-1.47); MONOCYTES PERCENT AUTO 9 % (4-13); Mean Corpuscular HGB 23.7 pg (26.0-34.0); Mean Corpuscular HGB Conc 29.8 g/dL (31.5-36.5); Mean Corpuscular Volume 80 fL (80-100); NEUTROPHILS ABSOLUTE AUTO 3.05 K/mm3 (1.96-9.15); NEUTROPHILS PERCENT AUTO 75 % (41-73); RDW Coefficient Variation 16.9 % (11.7-14.2); RDW Standard Deviation 49.3 fL (35.1-46.3); Red Blood Cell Count 3.67 M/mm3 (4.30-5.90); White Blood Cell Count 4.09 K/mm3 (4.00-11.30)
[2021-10-20 03:49] LABS: Platelet Count 29 K/mm3 (150-400)
--- NOTE | 2021-10-20 05:32 | NUR ---
SHIFT SUMMARY PT ALERT AND ORIENTED X4. CRITICALLY LOW PLATELET COUNT AND CRITICALLY HIGH CBGS. DR TRENT AWARE, PT CHANGED TO HIGH SLIDING SCALE AC/HS, EXTRA INSULING GIVEN, AND 1 UNIT OF PLATELETS INFUSED. HR 70'S AND 80'S NSR. BP STABLE. ON RA MAINTAINING SATS OVER 97%. PT ANXIOUS AND NEEDY AT TIMES. ALWAYS HUNGRY AND ASKING FOR SUGARY FOODS, WILL GET AGITATED IF HE DOES NOT RECEIVE WHAT HE WANTS IN TIME. PT ABLE TO PIVOT TO BEDSIDE COMMODE. FREQUENT, SOFT BOWEL MOVEMENTS. IN BED RESTING WITH CALL ALARM AT SIDE. WILL CONTINUE TO MONITOR UNTIL REPORT GIVEN TO DAYSHIFT RN
[2021-10-20 09:51] LABS: Platelet Count 36 K/mm3 (150-400)
[2021-10-20 11:49] LABS: Anion Gap 6 mmol/L (6-16); Blood Urea Nitrogen 22 mg/dL (8-24); Bun/Creatinine Ratio 28.3 (12.0-20.0); CO2, Blood 24 mmol/L (21-32); Calcium, Blood 7.8 mg/dL (8.5-10.1); Chloride, Blood 104 mmol/L (98-108); Creatinine, Blood 0.78 mg/dL (0.60-1.20); Glomerular Filtration Rate >60 (60-); Glucose, Blood 353 mg/dL (70-99); Potassium, Blood 3.8 mmol/L (3.5-5.5); Sodium, Blood 134 mmol/L (136-145)
--- NOTE | 2021-10-20 13:54 | NUR ---
PATIENT RETURNED FROM PARACENTESIS VIA GURNEY. PHARMACIST NOTIFIED THAT 6.2 L FLUID REMOVED DURING PROCEDURE FOR CALCULATION OF ALBUMIN DOSE.
[2021-10-20 14:13] LABS: Automated BF RBC Count 0.005 M/mm3 (0-0); Automated BF WBC Count 0.128 K/mm3 (0-999); Body Fluid WBC Count 128 /mm3 (0-999); RBC Count, Body Fluid 5000 /mm3 (0-0)
[2021-10-20 14:34] LABS: Glucose, Body Fluid 344 mg/dL
[2021-10-20 14:44] LABS: Protein, Body Fluid 0.8 g/dL
[2021-10-20 14:45] LABS: Albumin, Body Fluid 0.3 g/dL
[2021-10-20 14:48] LABS: Lactate Dehydrogenase, Body Fl 53 U/L
[2021-10-20 14:57] LABS: Total Cell Count, Body Fluid 100
[2021-10-20 14:58] LABS: Appearance, Body Fluid Hazy (Clear); Color, Body Fluid L Yellow (None-Yellow)
--- NOTE | 2021-10-20 18:10 | NUR ---
SHIFT SUMMARY: NO ACUTE EVENTS. DENIES PAIN. A&O X 3, SLIGHT CONFUSION AT TIMES. TELE SHOWS AFIB WITH RATE 80-90'S. HAD U/S GUIDED PARACENTESIS TODAY WITH 6.2 L FLUID REMOVED AND SENT TO LAB. ALBUMIN GIVEN PER PHARMACY. CBG > 200 ALL DAY; TOLERATING ADA DIET, BUT CONSTANTLY REQUESTS EXTRA FOOD. ASCITES IMPROVED AFTER TAP, BUT HAS 2+ PITTING EDEMA IN BLE. USING BSC INDEPENDENTLY.
[2021-10-21 04:03] LABS: BASOPHILS ABSOLUTE AUTO 0.02 K/mm3 (0.00-0.23); BASOPHILS PERCENT AUTO 1 % (0-2); EOSINOPHILS ABSOLUTE AUTO 0.08 K/mm3 (0.00-0.68); EOSINOPHILS PERCENT AUTO 2 % (0-6); Hemoglobin 8.1 g/dL (13.5-17.5); IMMATURE GRAN ABSOLUTE AUTO 0.01 K/mm3 (0.00-0.10); IMMATURE GRAN PERCENT AUTO 0 % (0-1); LYMPHOCYTES ABSOLUTE AUTO 0.66 K/mm3 (0.84-5.20); LYMPHOCYTES PERCENT AUTO 19 % (21-46); MONOCYTES ABSOLUTE AUTO 0.32 K/mm3 (0.16-1.47); MONOCYTES PERCENT AUTO 9 % (4-13); Mean Corpuscular HGB 23.7 pg (26.0-34.0); Mean Corpuscular Volume 79 fL (80-100); NEUTROPHILS ABSOLUTE AUTO 2.34 K/mm3 (1.96-9.15); NEUTROPHILS PERCENT AUTO 68 % (41-73); RDW Coefficient Variation 16.9 % (11.7-14.2); RDW Standard Deviation 48.6 fL (35.1-46.3); Red Blood Cell Count 3.42 M/mm3 (4.30-5.90); White Blood Cell Count 3.43 K/mm3 (4.00-11.30)
[2021-10-21 04:18] LABS: Platelet Count 26 K/mm3 (150-400)
[2021-10-21 04:35] LABS: Anion Gap 7 mmol/L (6-16); Blood Urea Nitrogen 21 mg/dL (8-24); Bun/Creatinine Ratio 29.9 (12.0-20.0); CO2, Blood 24 mmol/L (21-32); Calcium, Blood 7.8 mg/dL (8.5-10.1); Chloride, Blood 105 mmol/L (98-108); Glomerular Filtration Rate >60 (60-); Glucose, Blood 312 mg/dL (70-99); Sodium, Blood 136 mmol/L (136-145)
--- NOTE | 2021-10-21 06:33 | NUR ---
SHIFT SUMMARY ALERT AND ORIENTED X4. HR 70'S-90'S NSR. BP STABLE. ON RA MAINTAINING SATS OVER 98%. PLATELETS REMAIN LOW AT 26 IN MORNING LABS. PROVIDER AWARE. CONTINUES HAVE HIGH CBG'S. HUNGER IS UNCONTROLLED. PT IS AGITATED WHEN NOT GETTING THE FOOD HE WANTS, STATING "HE'D RATHER WITH A HAMBURGER IN HIS HAND". PT ABLE TO AMBULATE 75 FEET AND SHOWER HIMSELF WITH STANDBY ASSIST. IN BED SLEEPING WITH CALL ALARM AT SIDE. WILL CONTINUE TO MONITOR UNTIL REPOT GIVEN TO DAYSHIFT RN
--- NOTE | 2021-10-21 09:09 | NUR ---
No IV access at this time, pt refusing. Will continue to get IV access as pt is willing. Unable to give IV rocephin at this time.
--- NOTE | 2021-10-21 12:12 | NUR ---
said it is ok to leave IV out. They will be switching antibiotics to PO. Pt refusing IV. Order placed for ok to have no IV.
--- NOTE | 2021-10-21 12:17 | NUR ---
Pt requesting pain medication, LVM for MD.
--- NOTE | 2021-10-21 15:51 | NUR ---
Shift note: Tranferred to 3rd floor no tele at 1550 by wheelchair. Pt A&O, anxious and demanding at times. VSS on RA. CBG elevated 253-310, sliding scale used per orders. Pt frequently asking for snacks, educated on impact to blood sugar. Pt continues to ask for snacks and no evidence of learning noted. Abdomen rounded and tight. Pt has had 2 paracentesis since admission. Pt was refusing IV this AM, oked no IV and all meds switched to oral. PO abx to be started today.
--- NOTE | 2021-10-21 16:24 | NUR ---
ARRIVES FROM PCU VIA W/C. LUNGS CLEAR. ABD DISTENDED, BOWEL SOUNDS PRESENT. NO IV ASSESS. ALERT. ORIENTED. MULTIPLE REQUESTS FOR FOOD AND OTHER HOSPITAL ITEMS. UNLABORED RESPIRATIONS. STS HIS ONLY RELATIVES ARE CHILDREN IN [place] AND HE IS ASTRANGED FROM. LIVES IN [place]. COOPERATIVE. DENIES ANY PAIN. AMBULATORY IN ROOM TO BATHROOM. [facility]
--- NOTE | 2021-10-22 04:55 | NUR ---
SHIFT SUMMARY: PT IS A/OX4. THE PT's CBG WAS 405, THE MD WAS NOTIFIED AND HIS SS INSULIN WAS INCREASED TO A ONE TIME DOSE OF 10 UNITS. FOR THE FIRST 1/2 OF THE SHIFT HE WAS FIXATED ON EATING AND DRINKING. HE WAS AGITATED AND IRRITABLE BECAUSE WE COULDN'T BRING HIM THE FOOD AND BEVERAGE HE WANTED. HE THREATENED TO LEAVE AMA MULTIPLE TIMES AND THE PT STATED THAT HE WOULD BE LEAVING AMA TODAY. PER TELE MONITOR HE WAS SINUS RHYTHM. HE WAS INDEPENDENT IN HIS ROOM. HE DID USE HIS CALL LIGHT FOR NEEDS THROUGHOUT THE NOC SHIFT.
[2021-10-22] MEDS ORDERED: TORSE20 PO (13:00)
[2021-10-22] MEDS ORDERED: CIPR500 PO (13:00)
[2021-10-22] MEDS ORDERED: Enulose10 GM/15 M PO (13:01)
--- NOTE | 2021-10-22 13:14 | NUR ---
DISCHARGE PT DISCHARGED. PT REMAINED NON-COMPLIANT WITH ADA DIET WHILE ADMITTED. BLOOD SUGARS UP INTO THE 300S AT LUNCH. TREATED PER EMAR. AWARE OF THIS PROBLEM. PT REFUSED TO BE EDUCATED PRIOR TO DC. EDUCATION PAPERWORK AND DC INSTRUCTION PRINT OUTS GIVEN TO PT. HARD SCRIPT FOR METER PIECES GIVEN TO PT. PT WHEELED OUT BY AIDE AND WAITING AT ER FOR TAXI CAB.
== END 2021-10-22 13:21 | disposition home or self-care (01) | DRG 432 ==
LOC: ER 11:03 → MEDS 11:04 → ER 20:02 → MEDS 10-17 01:21 → PCU 10-18 08:38 → MEDS 10-21 15:53 → ENPENDDIS 10-22 12:36 → MEDS 10-22 13:21
PROVIDERS: Emergency Medicine; Family Medicine; Hospitalist; Physician Assistant; Student in an Organized Health Care Education/Training Program; ADMIT Internal Medicine
PROC: 0W9G3ZZ Drainage of Peritoneal Cavity, Percutaneous Approach (ICD-10-PCS; principal; 2021-10-17)
PROC: 0W9G3ZZ Drainage of Peritoneal Cavity, Percutaneous Approach (ICD-10-PCS; 2021-10-20)
DX: K70.31 Alcoholic cirrhosis of liver with ascites (principal); G92.8 Other toxic encephalopathy; I85.11 Secondary esophageal varices with bleeding; K70.41 Alcoholic hepatic failure with coma; D61.818 Other pancytopenia; F10.20 Alcohol dependence, uncomplicated; E11.65 Type 2 diabetes mellitus with hyperglycemia; I10 Essential (primary) hypertension; Z91.14 Patient's other noncompliance with medication regimen; Z79.4 Long term (current) use of insulin; Z79.891 Long term (current) use of opiate analgesic; Z79.899 Other long term (current) drug therapy
CPT/HCPCS: 36415; 36430; 49083; 70450; 80048; 80053; 81001; 82042; 82140; 82803; 82945; 82947; 83605; 83615; 84157; 85014; 85018; 85025; 85027; 85049; 85610; 86850; 86900; 86901; 87040; 87070; 87205; 89051; 93005; 93010; 96374; 96375; 99285-25; A9270; C9113; G0378; J0696; J1815; J1940; J2310; J2354; J2405; J7050; J7120; P9035; P9046

== ENCOUNTER 2021-11-09 15:27 | Emergency (ER) | payer MEDICARE, OTHER ==
[~2021-11-09] VITALS: Ht 175.3 cm; Wt 72.6 kg
[~2021-11-09 15:27] MED LIST changes: +CIPR500 PO; +Enulose10 GM/15 M PO; +TORSE20 PO
[2021-11-09 16:03] LABS: BASOPHILS ABSOLUTE AUTO 0.04 K/mm3 (0.00-0.23); BASOPHILS PERCENT AUTO 1 % (0-2); EOSINOPHILS ABSOLUTE AUTO 0.04 K/mm3 (0.00-0.68); EOSINOPHILS PERCENT AUTO 1 % (0-6); Hematocrit 24.9 % (37.0-53.0); Hemoglobin 7.7 g/dL (13.5-17.5); IMMATURE GRAN ABSOLUTE AUTO 0.03 K/mm3 (0.00-0.10); IMMATURE GRAN PERCENT AUTO 1 % (0-1); LYMPHOCYTES ABSOLUTE AUTO 0.63 K/mm3 (0.84-5.20); LYMPHOCYTES PERCENT AUTO 13 % (21-46); MONOCYTES ABSOLUTE AUTO 0.57 K/mm3 (0.16-1.47); MONOCYTES PERCENT AUTO 12 % (4-13); Mean Corpuscular HGB 23.8 pg (26.0-34.0); Mean Corpuscular HGB Conc 30.9 g/dL (31.5-36.5); Mean Corpuscular Volume 77 fL (80-100); NEUTROPHILS ABSOLUTE AUTO 3.64 K/mm3 (1.96-9.15); NEUTROPHILS PERCENT AUTO 74 % (41-73); RDW Coefficient Variation 17.2 % (11.7-14.2); RDW Standard Deviation 47.5 fL (35.1-46.3); Red Blood Cell Count 3.24 M/mm3 (4.30-5.90); White Blood Cell Count 4.95 K/mm3 (4.00-11.30)
[2021-11-09 16:06] LABS: Base Excess Venous 2.4 mmol/L; Bicarbonate Venous 25.7 mmol/L (24.0-30.0); PO2 Venous 36.9 mmHg (38-42); pH Blood Venous 7.36 (7.34-7.37)
[2021-11-09 16:16] LABS: Platelet Count 25 K/mm3 (150-400)
[2021-11-09 16:21] LABS: Source, Urine Clean Catch
[2021-11-09 16:30] LABS: Appearance, Urine Clear (Clear); Bilirubin, Urine Neg (Neg); Blood, Urine 5+ (Neg); Glucose Qualitative, Urine 4+ (Neg); Ketones, Urine Neg (Neg); Leukocyte Esterase, Urine Neg (Neg); Nitrite, Urine Neg (Neg); Protein, Urine Neg (Neg); Urobilinogen, Urine NORM (Normal)
[2021-11-09 16:42] LABS: Color, Urine Pale Yellow (P-Yellow)
[2021-11-09 16:44] LABS: Bacteria Rare /hpf; Squamous Epithelial Cells Not Seen /hpf (Few); White Blood Cells, Urine Rare /hpf (0-5)
[2021-11-09 16:59] LABS: International Normalized Ratio 1.31; Prothrombin Time Results 13.5 Sec (9.7-11.5)
[2021-11-09 17:17] LABS: Influenza A, PCR NEGATIVE (NEGATIVE); Influenza B, PCR NEGATIVE (NEGATIVE); Resp Syncytial Virus, PCR NEGATIVE (NEGATIVE); SARS-Cov-2 (COVID-19) PCR, MMC NEGATIVE (NEGATIVE)
[2021-11-09 17:29] LABS: Alanine Aminotransfer (ALT/SGP 34 U/L (12-78); Albumin, Blood 1.9 g/dL (3.4-5.0); Albumin/Globulin Ratio 0.5 (0.8-1.8); Alk Phos 139 U/L (50-136); Anion Gap 5 mmol/L (6-16); Aspartate Aminotrans (AST/SGOT 31 U/L (12-37); Beta-hydroxybutyrate 4.2 mg/dL (0.2-2.8); Bilirubin, Total 1.1 mg/dL (0.1-1.0); Blood Urea Nitrogen 25 mg/dL (8-24); Bun/Creatinine Ratio 35.4 (12.0-20.0); CO2, Blood 27 mmol/L (21-32); Chloride, Blood 94 mmol/L (98-108); Creatinine, Blood 0.71 mg/dL (0.60-1.20); Globulin, Blood 4.1 g/dL (2.2-4.0); Glomerular Filtration Rate >60 (60-); Glucose, Blood 646 mg/dL (70-99); Potassium, Blood 4.4 mmol/L (3.5-5.5); Sodium, Blood 126 mmol/L (136-145)
== END 2021-11-09 23:25 | disposition short-term general hospital (02) ==
LOC: ER 15:27
PROVIDERS: Emergency Medicine; Student in an Organized Health Care Education/Training Program
DX: E11.65 Type 2 diabetes mellitus with hyperglycemia (principal); E86.0 Dehydration; K70.30 Alcoholic cirrhosis of liver without ascites; K92.1 Melena; D69.6 Thrombocytopenia, unspecified; K72.90 Hepatic failure, unspecified without coma; Z20.822 Contact with and (suspected) exposure to COVID-19; F17.210 Nicotine dependence, cigarettes, uncomplicated; Z79.4 Long term (current) use of insulin; Z79.899 Other long term (current) drug therapy
CPT/HCPCS: 0241U; 36415; 36430; 71046; 80053; 81001; 82010; 82140; 82272; 82803; 82947; 85025; 85610; 85730; 86900; 86901; 93005; 93010; 96365; 96366; 96375; 99285-25; A9270; C9113; J0696; J1815; J2354; J7030; J7050; P9035; P9053